=== PATIENT | male | born 1980 | race Caucasian/White ===

== ENCOUNTER 2016-09-23 08:29 | Emergency (ER) | payer OTHER ==
[2016-09-23 08:54] VITALS: BP 141/89
--- NOTE | 2016-09-23 10:17 | UC ---
Back Pain HPI - HPI Summary HPI Summary: SLIPPED AND FELL JUNE 2016 AND SINCE THEN HAS HAD INTERMITTENT MID/LOWER BACK PAIN WORSE ON THE RIGHT SIDE. NO NUMBNESS OR TINGLING OR SADDLE ANESTHESIA. 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 IT IS KEEPING HIM UP AT NIGHT. - History of Current Complaint Chief Complaint: UCBackPain Stated Complaint: BACK PAIN Time Seen by Provider: 09/23/16 10:09 Hx Obtained From: Patient Onset/Duration: Gradual Onset, Lasting Weeks, Still Present Timing: Intermittent Severity Initially: Moderate Severity Currently: Moderate Pain Intensity: 6 Pain Scale Used: 0-10 Numeric Character: Dull, Throbbing Aggravating: Movement Alleviating: Rest Associated Signs And Symptoms: Negative: Swelling, Redness, Bruising, Fever, Weakness, Numbness, Tingling, Abdominal Pain, Bladder Incontinence, Bowel Incontinence - Allergies/Home Medications Allergies/Adverse Reactions: Allergies Allergy/AdvReac Type Severity Reaction Status Date / Time Ibuprofen Allergy Bleeding Verified 09/23/16 08:47 Home Medications: Home Medications Naltrexone (NF) 1 tab PO DAILY 09/23/16 [History Confirmed 09/23/16] hydrOXYzine HCL TAB* [Atarax TAB*] 10 mg PO PRN 09/23/16 [History] PMH/Surg Hx/FS Hx/Imm Hx - Additional Past Medical History Additional PMH: MILD SCOLIOSIS Endocrine History Of: Denies: Diabetes, Thyroid Disease Cardiovascular History Of: Denies: Cardiac Disorders, Hypertension, Pacemaker/ICD Respiratory History Of: Reports: Bronchitis - CHRONIC A TEENAGER Denies: COPD, Asthma GI/ History Of: Denies: Ulcer Neurological History Of: Reports: Seizures - 03/2015 AT [facility] - FROM ALCOHOL WITHDRAWAL, NONE SINCE Psychological History Of: Reports: Anxiety - NO MEDS, Depression, Bipolar Disorder - Surgical History Surgical History: Yes Surgery Procedure, Year, and Place: 2010 RIGHT INGUINAL HERNIA REPAIR, [facility]. 1997 TONSILLECTOMY, [facility] [place]. 11/2015 ERCP WITH GALLSTONE REMOVAL, [facility] [place] - Family History Known Family History: Positive: None - Social History Alcohol Use: Weekly Alcohol Amount: RECOVERING MARIJUANA Substance Use Type: None Substance Use Comment - Amount & Last Used: RECOVERING MARIJUANA Smoking Status (MU): Former Smoker Type: Cigarettes Amount Used/How Often: LESS THAN A PACK A WEEK - ON AND OFF FOR ABOUT 20 YEARS Length of Time of Smoking/Using Tobacco: ON AND OFF FOR ABOUT 20 YEARS Have You Smoked in the Last Year: Yes When Did the Patient Quit Smoking/Using Tobacco: September 2015 - Immunization History Most Recent Influenza Vaccination: pt is unsure Most Recent Tetanus Shot: UNSURE Most Recent Pneumonia Vaccination: NEVER Review of Systems Constitutional: Negative Skin: Negative Respiratory: Negative Cardiovascular: Negative Gastrointestinal: Negative Musculoskeletal: Decreased ROM, Myalgia Neurological: Negative All Other Systems Reviewed And Are Negative: Yes Physical Exam Triage Information Reviewed: Yes Appearance: Well-Appearing, No Pain Distress, Well-Nourished Vital Signs: Initial Vital Signs Temp 98.4 F 09/23/16 08:49 Pulse 87 09/23/16 08:49 Resp 18 09/23/16 08:49 BP 141/89 09/23/16 08:49 Pulse Ox 96 09/23/16 08:49 Vital Signs Reviewed: Yes Eyes: Positive: Conjunctiva Clear ENT: Positive: Hearing grossly normal Neck: Positive: Supple Respiratory: Positive: No respiratory distress, No accessory muscle use Cardiovascular: Positive: Pulses Normal Abdomen Description: Positive: Soft Musculoskeletal: Positive: No Edema, ROM Limited @ - BACK, Other: - MILDLT TENDER OVER PARASPINOUS MUSCLES RIGHT SIDE Neurological: Positive: Alert Psychological: Positive: Age Appropriate Behavior Skin: Negative: rashes Diagnostics - Radiology THORACOLUMBAR XRAY Xray Interpretation: No Acute Changes Radiology Interpretation Completed By: Radiologist Back Pain Course/Dx - Differential Dx/Diagnosis Provider Diagnoses: ACUTE ON CHRONIC MID/LOW BACK STRAIN Discharge - Discharge Plan Condition: Stable Disposition: HOME Prescriptions: Cyclobenzaprine TAB* [Flexeril TAB*] 10 mg PO BID PRN #30 tab PRN Reason: Pain Diclofenac 1% GEL (NF) [Voltaren 1% GEL (NF)] 1 applic TOPICAL QID PRN #1 tube PRN Reason: Pain Naproxen [Naproxen EC] 500 mg PO BID PRN #30 tab PRN Reason: Pain Patient Education Materials: Low Back Strain (ED), Chronic Back Pain (ED) Forms: *Work Release Additional Instructions: XRAY OF THORACOLUMBAR SPINE UNREMARKABLE. LIKELY MUSCULOSKELETAL STRAIN. IF PAIN IS PERSISTENT CONSIDER MRI FOR FURTHER EVALUATION. CALL THE NUMBER BELOW FOR ASSISTANCE IN ESTABLISHING WITH A PCP An additional resource available to assist in finding the appropriate physician for your health care needs is the [facility] ([facility]). You may contact them by calling [phone]. [facility] [address] [place] [address]
--- NOTE | 2016-09-23 10:49 | RAD ---
INDICATION: Trauma, back pain. COMPARISON: There are no prior studies available for comparison. TECHNIQUE: AP and lateral films of the spine were obtained centered just below the dorsal lumbar junction. The T10-L5 vertebra are visualized. FINDINGS: The vertebra are in normal alignment. No fracture is seen. Disc spaces appear maintained. IMPRESSION: NO EVIDENCE FOR FRACTURE.
== END 2016-09-23 11:08 | disposition home or self-care (01) ==
LOC: UCEAST 08:29
DX: S39.012A Strain of muscle, fascia and tendon of lower back, initial encounter (principal); W18.30XA Fall on same level, unspecified, initial encounter; R56.9 Unspecified convulsions; F41.9 Anxiety disorder, unspecified; R03.0 Elevated blood-pressure reading, without diagnosis of hypertension; Z87.891 Personal history of nicotine dependence
CPT/HCPCS: 72080; 99212; G0463

== ENCOUNTER 2016-09-28 10:23 | Emergency (ER) | payer OTHER ==
[2016-09-28 10:35] VITALS: BP 173/97
--- NOTE | 2016-09-28 11:24 | UC ---
Back Pain HPI - HPI Summary HPI Summary: seen on 09/23/16 FOR FALL THAT HAPPENED IN JUNE OF 2016. 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 - History of Current Complaint Chief Complaint: UCBackPain Stated Complaint: BACK INJURY Time Seen by Provider: 09/28/16 10:29 Onset/Duration: Sudden Onset, Lasting Days, Still Present Timing: Intermittent Severity Initially: Moderate Severity Currently: Moderate Pain Intensity: 7 Pain Scale Used: 0-10 Numeric Character: Spasmodic, Stiffness Aggravating: Movement, Bending Alleviating: Rest, Position - Risk Factors AAA Risk Factors: Negative TAD Risk Factors: Negative Cauda Equina Risk Factors: Negative Epidural Abscess Risk Factors: Negative - Allergies/Home Medications Allergies/Adverse Reactions: Allergies Allergy/AdvReac Type Severity Reaction Status Date / Time Ibuprofen Allergy Bleeding Verified 09/23/16 08:47 PMH/Surg Hx/FS Hx/Imm Hx Previously Healthy: Yes Endocrine History Of: Denies: Diabetes, Thyroid Disease Cardiovascular History Of: Denies: Cardiac Disorders, Hypertension, Pacemaker/ICD Respiratory History Of: Reports: Bronchitis - CHRONIC A TEENAGER Denies: COPD, Asthma GI/ History Of: Denies: Ulcer Neurological History Of: Reports: Seizures - 03/2015 AT [facility] [place] [facility] - FROM ALCOHOL WITHDRAWAL, NONE SINCE Psychological History Of: Reports: Anxiety - NO MEDS, Depression, Bipolar Disorder - Surgical History Surgical History: Yes Surgery Procedure, Year, and Place: 2010 RIGHT INGUINAL HERNIA REPAIR, [facility]. 1998 TONSILLECTOMY, [facility] [place]. 11/2015 ERCP WITH GALLSTONE REMOVAL, [facility] [place], [facility] - Family History Known Family History: Positive: None Negative: Renal Disease - Social History Occupation: Employed Full-time Lives: With Family Alcohol Use: Weekly Alcohol Amount: RECOVERING MARIJUANA Substance Use Type: None Substance Use Comment - Amount & Last Used: RECOVERING MARIJUANA Smoking Status (MU): Former Smoker Type: Cigarettes Amount Used/How Often: LESS THAN A PACK A WEEK - ON AND OFF FOR ABOUT 20 YEARS Length of Time of Smoking/Using Tobacco: ON AND OFF FOR ABOUT 20 YEARS Have You Smoked in the Last Year: Yes When Did the Patient Quit Smoking/Using Tobacco: September 2015 Cessation Counseling: Patient Advised to Stop - Immunization History Most Recent Influenza Vaccination: pt is unsure Most Recent Tetanus Shot: UNSURE Most Recent Pneumonia Vaccination: NEVER Review of Systems Constitutional: Negative Skin: Negative Eyes: Negative ENT: Negative Respiratory: Negative Cardiovascular: Negative Gastrointestinal: Negative Genitourinary: Negative Motor: Negative Neurovascular: Negative Musculoskeletal: Arthralgia, Myalgia Neurological: Negative Psychological: Negative All Other Systems Reviewed And Are Negative: Yes Physical Exam Triage Information Reviewed: Yes Appearance: Well-Appearing, No Pain Distress, Well-Nourished Vital Signs: Initial Vital Signs Temp 98.9 F 09/28/16 10:31 Pulse 65 09/28/16 10:31 Resp 16 09/28/16 10:31 BP 173/97 09/28/16 10:31 Pulse Ox 100 09/28/16 10:31 Vital Signs Reviewed: Yes Eye Exam: Normal ENT Exam: Normal ENT: Positive: Normal ENT inspection, Hearing grossly normal, TMs normal Dental Exam: Normal Neck exam: Normal Neck: Positive: Supple, Nontender, No Lymphadenopathy Respiratory Exam: Normal Respiratory: Positive: Chest non-tender, Lungs clear, Normal breath sounds, No respiratory distress, No accessory muscle use Cardiovascular Exam: Normal Cardiovascular: Positive: RRR, No Murmur, Pulses Normal Abdominal Exam: Normal Abdomen Description: Positive: Nontender, No Organomegaly Musculoskeletal: Positive: Strength Intact, ROM Intact, No Edema, Other: - PALPABLE MUSCLE SPASM ON LEFT SIDE OF BACK Neurological Exam: Normal Psychological Exam: Normal Psychological: Positive: Normal Response To Family Skin Exam: Normal Back Pain Course/Dx - Differential Dx/Diagnosis Differential Diagnosis/HQI/PQRI: Strain, Sprain Provider Diagnoses: ACUTE ON CHRONIC RIGHT SIDED BACK PAIN. MUSCLE SPASM Discharge - Discharge Plan Condition: Stable Disposition: HOME Forms: *Work Release Referrals: [facility] PHYSICIAN REFERRAL [Outside] Non Staff,Doctor [Primary Care Provider] -
== END 2016-09-28 11:13 | disposition home or self-care (01) ==
LOC: UCEAST 10:23
DX: M62.830 Muscle spasm of back (principal); G89.29 Other chronic pain; R03.0 Elevated blood-pressure reading, without diagnosis of hypertension; Z88.6 Allergy status to analgesic agent
CPT/HCPCS: 99211; G0463

== ENCOUNTER 2016-10-14 10:49 | Inpatient (IN) | payer OTHER ==
[2016-10-14 11:25] LABS: Urine Bilirubin Negative (Negative); Urine Glucose Negative (Negative); Urine Nitrite Negative (Negative)
[2016-10-14 11:46] LABS: Benzodiazepine Urine Screen None Detected (None Detect)
--- NOTE | 2016-10-14 11:48 | RAD ---
HISTORY: Right hand pain COMPARISONS: None VIEWS: 2, Frontal and lateral views of the right hand FINDINGS: BONE DENSITY: Normal. BONES: There is a linear lucency consistent with a nondisplaced fracture of the base of the fifth metacarpal. There is remote post traumatic deformity of the distal fifth metacarpal JOINTS: There is no arthropathy. ALIGNMENT: There is no dislocation. SOFT TISSUES: Unremarkable. OTHER FINDINGS: None. IMPRESSION: NONDISPLACED FRACTURE OF THE BASE OF THE FIFTH METACARPAL
[2016-10-14 12:15] LABS: Hematocrit 43 % (42-52); Hemoglobin 14.3 g/dl (14.0-18.0); Mean Corpuscular HGB Conc 33 g/dl (31-36); Mean Corpuscular Hemoglobin 29 pg (27-31); Mean Corpuscular Volume 88 fL (80-94); Mean Platelet Volume 7 um3 (7.4-10.4); Red Blood Count 4.87 10^6/ul (4.0-5.4); Red Cell Distribution Width 14 % (10.5-15); White Blood Count 9.5 10^3/ul (3.5-10.8)
--- NOTE | 2016-10-14 12:20 | ED ---
Progress - Progress Note Progress Note: Rt hand base of 5th MT fx Ulnar-gutter splint placed (fiberglass hand-made) - pt tolerated well NV intact pre and post placement Course/Dx - Diagnoses Provider Diagnoses: Fracture of fifth metacarpal bone of right hand
[2016-10-14 12:27] LABS: ALT 34 U/L (7-52); AST 35 U/L (13-39); Albumin 4.7 g/dL (3.2-5.2); Alkaline Phosphatase 72 U/L (34-104); Anion Gap 12 mmol/L (2-11); BUN/Creatinine Ratio 10.2 (8-20); Blood Urea Nitrogen 9 mg/dL (6-24); CO2 Carbon Dioxide 23 mmol/L (22-32); Calcium 9.5 mg/dL (8.6-10.3); Chloride 104 mmol/L (101-111); EGFR African American 126.7 (>60); EGFR Non-African American 98.6 (>60); Globulin 3.2 g/dL (2-4); Glucose 93 mg/dL (70-100); Potassium 3.4 mmol/L (3.5-5.0); Sodium 139 mmol/L (133-145); Total Protein 7.9 g/dL (6.4-8.9)
[2016-10-14 12:28] LABS: Acetaminophen < 15 mcg/mL; Alcohol 95 mg/dL (<10); Salicylate < 2.50 mg/dL (<30)
[2016-10-14 12:37] LABS: TSH (Thyroid Stimulating Horm) 0.71 mcIU/mL (0.34-5.60)
[2016-10-14] MEDS ORDERED: Al Hydrox/Mg Hydrox/Simet LIQ* 30 ML UDC PO PRN (14:57)
[2016-10-14] MEDS: Acetaminophen TAB* 325 MG PO PRN (16:11)
--- NOTE | 2016-10-14 16:23 | ED ---
Chad Marin Billy, scribed for Mark Daniel MD on 10/14/16 at 1202 . Psychiatric Complaint - HPI Summary HPI Summary: Patient is a 36 year-old male coming to [facility] for voluntary mental health evaluation. He states he has had suicidal "thoughts and impulses" for the last 3 weeks, and did not feel safe by himself. He spoke to his and therapist about this, and he decided to come to the ED for treatment. He reports previous suicidal attempts. Patient has a history of anxiety, depression, and alcoholism. He states he had consumed EtOH last night, but the last time he drank before then was 3-4 weeks ago. He also states that he used cocaine last night. He has right hand pain after punching a wall last night. - History Of Current Complaint Chief Complaint: EDMentalHealth Time Seen by Provider: 10/14/16 11:07 Hx Obtained From: Patient Onset/Duration: Gradual Onset, Lasting Weeks, Still Present Timing: Constant Severity Initially: Moderate Severity Currently: Moderate Character: Depressed Aggravating Factor(s): Alcohol Use, Drug Use Alleviating Factor(s): Nothing Related History: Positive For: Prior Psychiatric Issues Has Suicidal: Reports: Thoughts. Denies: With A Plan Has Homicidal: Denies: Thoughts, With A Plan - Allergies/Home Medications Allergies/Adverse Reactions: Allergies Allergy/AdvReac Type Severity Reaction Status Date / Time Ibuprofen Allergy Bleeding Verified 10/13/16 13:34 Home Medications: Home Medications Hydroxyzine Pamoate [Vistaril] 25 mg PO Q4HR PRN 10/14/16 [History Confirmed 05/23] Naltrexone (NF) 50 mg PO DAILY 10/14/16 [History Confirmed 10/14/16] PMH/Surg Hx/FS Hx/Imm Hx Endocrine/Hematology History: Denies: Hx Diabetes, Hx Thyroid Disease Cardiovascular History: Denies: Hx Hypertension, Hx Pacemaker/ICD Respiratory History: Reports: Hx Sleep Apnea - MILD, UNDIAGNOSISED Denies: Hx Asthma, Hx Chronic Obstructive Pulmonary Disease (COPD) GI History: Reports: Hx Gastroesophageal Reflux Disease - NO MEDS FOR ACID REFLUX, Other GI Disorders - h/o intermittant nausea/none now Denies: Hx Ulcer Sensory History: Denies: Hx Contacts or Glasses, Hx Hearing Aid Opthamlomology History: Denies: Hx Contacts or Glasses Neurological History: Reports: Hx Seizures - 03/2015 AT [facility] - FROM ALCOHOL WITHDRAWAL, NONE SINCE Psychiatric History: Reports: Hx Anxiety - NO MEDS, Hx Depression, Hx Bipolar Disorder, Hx Suicide Attempt - 05/20/13 considered suicide, Hx Substance Abuse - ETOH & COCAINE Denies: Hx Eating Disorder, Hx Panic Disorder, Hx of Violent Episodes Against Others - Surgical History Surgery Procedure, Year, and Place: 2010 RIGHT INGUINAL HERNIA REPAIR, [facility]. 1998 TONSILLECTOMY, [facility] [place]. 11/2015 ERCP WITH GALLSTONE REMOVAL, [facility] [place] [place] Hx Anesthesia Reactions: No Infectious Disease History: No Infectious Disease History: Denies: Hx Hepatitis, Hx Human Immunodeficiency Virus (HIV), History Other Infectious Disease, Traveled Outside the [place] in Last 30 Days - Family History Known Family History: Negative: Renal Disease - Social History Alcohol Use: Weekly Alcohol Amount: RECOVERING MARIJUANA Substance Use Type: Reports: None Substance Use Comment - Amount & Last Used: RECOVERING MARIJUANA Hx Tobacco Use: Yes Smoking Status (MU): Former Smoker Type: Cigarettes Amount Used/How Often: LESS THAN A PACK A WEEK - ON AND OFF FOR ABOUT 20 YEARS Length of Time of Smoking/Using Tobacco: ON AND OFF FOR ABOUT 20 YEARS Have You Smoked in the Last Year: Yes Review of Systems Negative: Fever Positive: Arthralgia - right hand Positive: Depressed - SI All Other Systems Reviewed And Are Negative: Yes Physical Exam - Summary Physical Exam Summary: The patient is well-nourished in no acute distress and in no acute pain. The skin is warm and dry and skin color reflects adequate perfusion. HEENT: The head is normocephalic and atraumatic. The pupils are equal and reactive. The conjunctivae are clear and without drainage. Nares are patent and without drainage. Mouth reveals moist mucous membranes and the throat is without erythema and exudate. The external ears are intact. The ear canals are patent and without drainage. The tympanic membranes are intact. Neck is supple with full range of motion and non-tender. There are no carotid bruits. There is no neck vein distension. Respiratory: Chest is non-tender. Lungs are clear to auscultation and breath sounds are symmetrical and equal. Cardiovascular: Heart is regular rate and rhythm. There is no murmur or rub auscultated. There is no peripheral edema and pulses are symmetrical and equal. Abdomen: The abdomen is soft and non-tender. There are normal bowel sounds heard in all four quadrants and there is no organomegaly palpated. Musculoskeletal: There is no back pain noted. Extremities are non-tender with full range of motion. There is good capillary refill. There is no peripheral edema or calf tenderness elicited. Neurological: Patient is alert and oriented to person, place and time. The patient has symmetrical motor strength in all four extremities. Cranial nerves are grossly intact. Deep tendon reflexes are symmetrical and equal in all four extremities. Psychiatric: The patient is depressed and has suicidal ideation without any known plans. Triage Information Reviewed: Yes Vital Signs On Initial Exam: Initial Vitals Temp Pulse Resp BP Pulse Ox 98.6 F 97 18 171/100 99 10/14/16 11:38 10/14/16 11:38 10/14/16 11:38 10/14/16 11:38 10/14/16 11:38 Vital Signs Reviewed: Yes Diagnostics - Vital Signs Vital Signs Temp Pulse Resp BP Pulse Ox 10/14/16 11:38 98.6 F 97 18 171/100 99 - Laboratory Lab Results: Lab Results 10/14/16 10/14/16 Range/Units 11:09 11:09 Urine Color Colorless Urine Appearance Clear Urine pH 6.0 (5-9) Ur Specific Prue 1.002 L (1.010-1.030) Urine Protein Negative (Negative) Urine Ketones Negative (Negative) Urine Blood Negative (Negative) Urine Nitrate Negative (Negative) Urine Bilirubin Negative (Negative) Urine Urobilinogen Negative (Negative) Ur Leukocyte Esterase Negative (Negative) Urine Glucose Negative (Negative) Urine Opiates Screen None detected (None Detect) Ur Barbiturates Screen None detected (None Detect) Ur Phencyclidine Scrn None detected (None Detect) Ur Amphetamines Screen None detected (None Detect) U Benzodiazepines Scrn None detected (None Detect) Urine Cocaine Screen Presumptive positive H (None Detect) U Cannabinoids Screen None detected (None Detect) Result Diagrams: 10/14/16 11:55 10/14/16 11:55 Lab Statement: Any lab studies that have been ordered have been reviewed, and results considered in the medical decision making process. - Radiology Right Hand XRay Radiology Interpretation Completed By: Radiologist - NONDISPLACED FRACTURE OF THE BASE OF THE FIFTH METACARPAL Course/Dx - Course Course Of Treatment: Medically clear for MHE at 1234. Assessment/Plan: All blood work WNL. X ray of the right hand has a nondisplaced fraxture. Splint was placed by Dayana JUAREZ. Re-exam after splint: neurovascular intact. He is medically cleared. He is awaiting for a MHE. Patient is hemodynamically stable and A+O x 3. Patient was asest by Dr. Guzman (Psychiatry) he accept the patient for admission fir further management. - Differential Dx/Clinical Impression Differential Diagnosis/HQI/PQRI: Positive: Depression, Suicidal Ideation, Suicidal Gesture Provider Diagnosis: Fracture of fifth metacarpal bone of right hand, Depression Discharge - Discharge Plan Condition: Stable Disposition: PSYCHIATRIC FACILITY-[facility] The documentation as recorded by the Chad ferro Billy accurately reflects the service I personally performed and the decisions made by me, Mark Daniel MD.
[2016-10-14] MEDS ORDERED: Naproxen TAB* 250 MG ONE (17:36)
[2016-10-15] MEDS: Naproxen TAB* 250 MG PO PRN (08:27)
[2016-10-15] MEDS: Naltrexone (NF) 50 MG TAB PO SCH (08:28)
[2016-10-15] MEDS: Thiamine TAB* 100 MG TAB PO SCH (08:28)
[2016-10-15] MEDS: Vitamin THERAPEUTIC TAB PO SCH (08:28)
[2016-10-15] MEDS: hydrOXYzine HCL TAB* 25 MG PO PRN (08:29)
[2016-10-15] MEDS: Sertraline* 25 MG TAB PO SCH (12:31)
--- NOTE | 2016-10-15 20:02 | HP ---
HISTORY AND PHYSICAL: DATE OF ADMISSION: IDENTIFYING DATA: Douglas is a 36-year-old , employed, male, this is his second psychiatric hospitalization at [facility] and one of multiple prior psychiatric hospitalizations in the past in different other hospitals. CHIEF COMPLAINT: "I have been suffering from serious depression and spiraling down for long time and I feel so guilty." HISTORY OF PRESENT ILLNESS: Douglas came to the emergency room on a voluntary basis , brought in by the ambulance from [facility] where he reported to his therapist that he was feeling suicidal with definitive plans to kill himself. During today's evaluation, Douglas reports that his depressive symptoms have been gradually worsening for more than 2 months now. He then started drinking briefly believing that, that will resolve the feelings of depression; however, it did not. He stopped drinking briefly and tried to get over with it, but for the last couple of days, he started drinking again and drank about 12-pack every day and then his depression worsened to a point that he started being seriously suicidal. He reports of feeling sad, crying for no reason, feeling helpless, worthless, and guilty. He could not find the reason for what he was feeling guilty, although he has everything to be happy about like he has a very supportive and loving caring . They just had a baby girl 4-1/2 months ago. He is making good money from his work, yet he cannot make himself happy enough. 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 He called his primary care physician, who sent him to [facility] for further evaluation from where he was sent to [facility] Emergency Department. Today, he denies any thoughts of hurting himself, also denies any hallucinations, delusions, or obsessions. He says he feels safe while in the hospital. PAST PSYCHIATRIC HISTORY: As mentioned earlier, multiple prior psychiatric hospitalizations beginning in May of 2013 at [facility]. He was transferred to the psychiatric unit from Medicine after management of severe alcohol withdrawal. Prior to that, he was hospitalized at [facility] in 2009 for depression and suicidal ideations. His history is remarkable for multiple suicide attempts, I believe, jumping from a bridge and fracturing his ankle. Also, overdose on lots of Benadryl resulting in hospitalization in the medical floor. Finally, he was hospitalized here at [facility] at age 29 following a Benadryl overdose and this time out of anger and frustration, he punched the wall and fractured his hand. PAST TRIAL OF MEDICATIONS: Includes: 1. Citalopram. 2. Lamotrigine. 3. Quetiapine. 4. Gabapentin. 5. Antabuse. 6. Depakote of which he did not like any of them. PAST MEDICAL HISTORY: History of right inguinal hernia repair; two head injuries, one with loss of consciousness at age 26, other TBI at age 34; history of seizures, possibly because of alcohol use and withdrawal. Labs: Unremarkable. SUBSTANCE ABUSE HISTORY: Significant for mostly alcohol use disorder. He started drinking at age 14 and by age 20, it became heavy drinking and daily drinking of 40 beers per day. He reported of going through DTs, seizures, etc. He also experimented with cocaine and marijuana; however, denies using any other psychoactive drugs. ALLERGIES: No known drug allergies. FAMILY HISTORY: Significant for his father having depression and alcohol use disorder. Sister suffers from schizophrenia and alcohol use disorder. No family history of completed suicide. SOCIAL AND PERSONAL HISTORY: Douglas was born and raised in [place], [place]. His parents when he was 10 years old. He had 5 older siblings. He managed to graduate from high school and went to [employer] school for 2 years in [employer]. 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 In the past, he also worked in [employer]. He is and has a 4-1/2- month-old baby girl. PHYSICAL EXAMINATION GENERAL APPEARANCE: He does not appear to be in any kind of physical distress. He is a healthy appearing, somewhat disheveled, male with fair grooming and hygiene. VITAL SIGNS: Show blood pressure of 158/100, pulse 82, respirations 16, O2 sat 99, temperature 98.3, complaining of 5/10 hand pain and 3/10 back pain. HEENT: MMM. EOMI. Oral cavity: Fairly clean, no abnormal findings in the oral cavity, dentures, or pharynx. NECK: Supple. No JVD. No enlarged lymph nodes. LUNGS: Bilateral air entry, equal on both sides, equal without any added sounds. CARDIOVASCULAR: Heart rate regular and rhythm is normal. S1, S2 only. No murmur or gallops. ABDOMEN: Soft, no tenderness, no organomegaly. Bowel sounds positive in all 4 quadrants. GENITOURINARY: Deferred per the patient's request. RECTAL: No rectal exam done per the patient's request. EXTREMITIES: Both extremities have full range of movements except for right wrist, which is tender because of fractured hand. No edema or swelling of the legs. Pedal pulse positive. NEUROLOGIC: Cranial nerves II through XII grossly intact. No focal deficits. He is alert and oriented to time, place, and person. SKIN: Intact, no rashes or lesions. Right hand is wrapped in a crepe bandage. MENTAL STATUS EXAMINATION: Average height, average weight, healthy-appearing, male, who is alert and oriented to time, place and person. Makes good eye contact. Speech is normal in all spheres. Describes his mood as depressed, observed affect appears to be restricted and dysphoric. Intelligence appears to be average as evidenced by his vocabulary and fund of knowledge. Memory functions are intact in all spheres. There is no evidence of any thoughts, perceptual, or psychomotor disturbances at the time of evaluation. Insight and judgment appears to be fair to good. CLINICAL SUMMARY: This 36-year-old employed, , male with history of alcohol use disorder and some mood disorder which is untreated presented to the emergency department following 2 months of worsening depressive symptoms and resuming drinking again. He is currently suicidal with plans either to overdose or slash his wrist. MENTAL HEALTH DIAGNOSES: 1. Mood disorder, not otherwise specified, rule out major depressive disorder. 2. Alcohol use disorder. PHYSICAL HEALTH DIAGNOSIS: None at this time. TREATMENT PLAN: Douglas will remain hospitalized on the behavioral health unit for his safety. 15-minute check will continue. His code status will remain full. Supportive milieu, individual, and group therapy will be initiated and he will be encouraged to attend. Different treatment modalities were discussed with him , specifically psychopharmacological. He agreed to consider Zoloft. Risks, benefits, and alternatives to Zoloft were explained. He verbalized his understanding and wants to try. Rest of the pharmacological management will be up to the assigned psychiatrist on the unit. [id number]/[facility] #: [id number] [facility]
[2016-10-16] MEDS: Naltrexone (NF) 50 MG TAB PO SCH (08:54)
[2016-10-16] MEDS: Vitamin THERAPEUTIC TAB PO SCH (08:54)
[2016-10-16] MEDS: Naproxen TAB* 250 MG PO PRN ×2 (08:54→21:36)
[2016-10-16] MEDS: Thiamine TAB* 100 MG TAB PO SCH (08:54)
[2016-10-16] MEDS: Sertraline* 25 MG TAB PO SCH (08:54)
[2016-10-16] MEDS: hydrOXYzine HCL TAB* 25 MG PO PRN (20:17)
--- NOTE | 2016-10-16 20:41 | ADMNOTE ---
Identification - Identify Employment Status: Employed Hx Psychiatric Hospitalization: Yes - Last admission on04/08/15 on [facility] Arrived to Hospital Via: Ambulatory History - Objective HPI: 36 y/o male known to this unit fron onother admission in 2014 present seeking admission due to suicidal ideation and multiple plans suchas OD and self mutilation. Relapsed on alcohol and cocaine 2 months ago and wasn't complient with his meds. Exam Appearance: Healthy Appearing Hygiene: Normal Grooming: Well Kept Psychomotor Activities: Normal Exhibits Abnormal Movement: No Attitude and Relatedness: Appropriate Eye Contact: Good - Speech Quality: Unpressured Latencies: Normal Quantity: Appropriate Patient's Decription of Mood: "Sad" Observed Affect: Non-labile Patient's Thought Process: Coherent, Goal Directed Thought Content: Yes Passive Wish, Yes Suicidal Planning - OD and self mutilation, No Homicidal Ideation, No Paranoid Ideation Experiencing Hallucinations: No, Sensorium is Clear Type of Hallucinations: Visual: No, Auditory: No, Command: No Orientation: Yes Intact, Yes Orientated to Time, Yes Orientated to Place, Yes Orientated to Person Impulse Control: Tenuous Insight and Judgement: Good Impression - Impression Merits Inpatient Hospitalization: Yes - [place] [facility] Mental Illness: Substance induced Mood d/o. Substance use d/o - [place] [facility] Medical Illness: None Plan - Treatment Plan Continued Medication Management: Start Medication Medications: Current Medications Acetaminophen (Tylenol Tab*) 650 mg PO Q4H PRN PRN Reason: for pain; or Temp >101 F Last Admin: 10/14/16 16:11 Dose: 650 mg Al Hydrox/Mg Hydrox/Simethicone (Maalox Plus*) 30 ml PO Q4H PRN PRN Reason: INDIGESTION Hydroxyzine HCl (Atarax Tab*) 25 mg PO Q4H PRN PRN Reason: AGITATION/ANXIETY/INSOMNIA Last Admin: 10/16/16 20:17 Dose: 25 mg Multivitamins (Theragran Tab*) 1 tab PO DAILY [facility] Last Admin: 10/16/16 08:54 Dose: 1 tab Naltrexone HCl (Naltrexone (Nf)) 50 mg PO DAILY [facility] PRN Reason: Protocol Last Admin: 10/16/16 08:54 Dose: 50 mg Naproxen (Naprosyn Tab*) 500 mg PO BID PRN PRN Reason: PAIN Last Admin: 10/16/16 08:54 Dose: 500 mg Sertraline HCl (Zoloft*) 25 mg PO DAILY [facility] Last Admin: 10/16/16 08:54 Dose: 25 mg Thiamine HCl (Vitamin B-1 Tab*) 100 mg PO DAILY [facility] Last Admin: 10/16/16 08:54 Dose: 100 mg - Discharge Plan Discharge Plan: Drug/Alcohol Rehab Outpatient Program: [facility]
[2016-10-17] MEDS: Naproxen TAB* 250 MG PO PRN ×2 (08:17→20:17)
[2016-10-17] MEDS: Sertraline* 25 MG TAB PO SCH (08:18)
[2016-10-17] MEDS: Thiamine TAB* 100 MG TAB PO SCH (08:18)
[2016-10-17] MEDS: Vitamin THERAPEUTIC TAB PO SCH (08:18)
[2016-10-17] MEDS: hydrOXYzine HCL TAB* 25 MG PO PRN ×2 (08:18→20:18)
[2016-10-17] MEDS: Naltrexone (NF) 50 MG TAB PO SCH (08:18)
--- NOTE | 2016-10-17 12:16 | PN ---
Subjective - Subjective Service Type: 97653 Hosp care 15 min low complexity Subjective: The patient is met for the first time today and his chart is reviewed. He endorses a long history of episodic mood instability with current depressive functioning. His last period of amber was approximately 1.5 years ago. He has been isolative thus far this hospitalization but feels like he should start attending groups. The patient speaks fondly of his and 4.5 month old daughter and states he is not having SI here in the hospital. He has had negative reactions to quetiapine and Depakote in the past. Objective - Appearance Appearance: Well Developed/Nourished Dysmorphic Features: No Hygiene: Normal Grooming: Fairly Well Kept - Behavior Psychomotor Activities: Normal Exhibits Abnormal Movement: No - Attitude and Relatedness Attitude and Relatedness: Cooperative Eye Contact: Fair - Speech Quality: Unpressured Latencies: Normal Quantity: Appropriate - Mood Patient's Decription of Mood: "Sad" - Affect Observed Affect: Depressed Affect Consistent with: Dysphoria - Thought Process Patient's Thought Process: Coherent Thought Content: No Passive Wish, No Suicidal Planning, No Homicidal Ideation, No Paranoid Ideation - Sensorium Experiencing Hallucinations: No, Sensorium is Clear Type of Hallucinations: Visual: No, Auditory: No, Command: No - Level of Consciousness Level of Consciousness: Alert Orientation: Yes Intact, Yes Orientated to Time, Yes Orientated to Place, Yes Orientated to Person - Impulse Control Impulse Control: Tenuous - Insight and Judgement Insight and Judgement: Fair - Group Participation Particating in Group Activities: No - Medication Management Medication Management Adherence: Yes Assessment - Assessment Merits Inpatient Hospitalization: For Immediate Safety, For Stabilization Inpatient DSM-IV Dx: Bipolar Depression Clinical Impression: 36 y.o. , white male with a history of bipolar DO, alcohol and cocaine abuse arriving voluntarily to the ER complaining of depressed mood and SI with thoughts to cut himself with a knife. Plan - Plan Treatment Plan: Name: MARCO ANTONIO VASQUES Birthdate: 1980 [id number] The patient has bipolar depression. We will discontinue sertraline and start trials of lamotrigine 25mg PO qday, aripiprazole 5mg PO qday and Benadryl at night, as needed, for sleep. Will encourage group participation. Continued Medication Management: Start Medication Medications: Current Medications Acetaminophen (Tylenol Tab*) 650 mg PO Q4H PRN PRN Reason: for pain; or Temp >101 F Last Admin: 10/14/16 16:11 Dose: 650 mg Al Hydrox/Mg Hydrox/Simethicone (Maalox Plus*) 30 ml PO Q4H PRN PRN Reason: INDIGESTION Hydroxyzine HCl (Atarax Tab*) 25 mg PO Q4H PRN PRN Reason: AGITATION/ANXIETY/INSOMNIA Last Admin: 10/17/16 08:18 Dose: 25 mg Multivitamins (Theragran Tab*) 1 tab PO DAILY [facility] Last Admin: 10/17/16 08:18 Dose: 1 tab Naltrexone HCl (Naltrexone (Nf)) 50 mg PO DAILY [facility] PRN Reason: Protocol Last Admin: 10/17/16 08:18 Dose: 50 mg Naproxen (Naprosyn Tab*) 500 mg PO BID PRN PRN Reason: PAIN Last Admin: 10/17/16 08:17 Dose: 500 mg Sertraline HCl (Zoloft*) 25 mg PO DAILY [facility] Last Admin: 10/17/16 08:18 Dose: 25 mg Thiamine HCl (Vitamin B-1 Tab*) 100 mg PO DAILY [facility] Last Admin: 10/17/16 08:18 Dose: 100 mg - Discharge Plan Discharge Plan: Inpatient Hospitalization
[2016-10-17] MEDS: ARIPiprazole TAB* 5 MG PO SCH (13:09)
[2016-10-17] MEDS: lamoTRIgine TAB(*) 25 MG PO SCH (13:10)
[2016-10-17] MEDS: diPHENhydraMINE PO* 50 MG PO PRN (20:16)
[2016-10-18] MEDS: Naltrexone (NF) 50 MG TAB PO SCH (09:04)
[2016-10-18] MEDS: ARIPiprazole TAB* 5 MG PO SCH (09:05)
[2016-10-18] MEDS: Vitamin THERAPEUTIC TAB PO SCH (09:05)
[2016-10-18] MEDS: Thiamine TAB* 100 MG TAB PO SCH (09:05)
[2016-10-18] MEDS: lamoTRIgine TAB(*) 25 MG PO SCH (09:05)
[2016-10-18] MEDS: hydrOXYzine HCL TAB* 25 MG PO PRN ×2 (11:00→20:02)
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
[2016-10-18] MEDS: Naproxen TAB* 250 MG PO PRN (17:59)
[2016-10-18] MEDS: diPHENhydraMINE PO* 50 MG PO PRN (20:02)
[2016-10-19] MEDS: Naltrexone (NF) 50 MG TAB PO SCH (08:05)
[2016-10-19] MEDS: Thiamine TAB* 100 MG TAB PO SCH (08:05)
[2016-10-19] MEDS: lamoTRIgine TAB(*) 25 MG PO SCH (08:05)
[2016-10-19] MEDS: Vitamin THERAPEUTIC TAB PO SCH (08:06)
[2016-10-19] MEDS: Naproxen TAB* 250 MG PO PRN (08:07)
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
[2016-10-19] MEDS: Acetaminophen TAB* 325 MG PO PRN (15:25)
[2016-10-19] MEDS: Ziprasidone * 20 MG CAP (generic Geodon) PO SCH (20:12)
[2016-10-19] MEDS: Analgesic BALM* 114 GM TOPICAL SCH (20:14)
[2016-10-19] MEDS: diPHENhydraMINE PO* 50 MG PO PRN (21:26)
[2016-10-20 08:05] LABS: HDL Cholesterol 42.1 mg/dL
[2016-10-20] MEDS: Naltrexone (NF) 50 MG TAB PO SCH (10:00)
[2016-10-20] MEDS: lamoTRIgine TAB(*) 25 MG PO SCH (10:00)
[2016-10-20] MEDS: Thiamine TAB* 100 MG TAB PO SCH (10:00)
[2016-10-20] MEDS: Vitamin THERAPEUTIC TAB PO SCH (10:00)
[2016-10-20] MEDS: hydrOXYzine HCL TAB* 25 MG PO PRN ×2 (11:00→20:07)
[2016-10-20] MEDS: Naproxen TAB* 250 MG PO PRN (11:00)
--- NOTE | 2016-10-20 13:41 | PN ---
Subjective - Subjective Service Type: 89424 Hosp care 15 min low complexity Subjective: The patient states that he is tolerating the introduction of ziprasidone well and feels his mood has improved today. He denies any thoughts of self harm and states that he is looking forward to returning home to his and infant daughter. Some uncertainty remains about his legal issues and whether his motorcycle police officer will violate him for his recent relapse on alcohol and cocaine. He has left several messages with her but has not heard back. He would likely opt for inpatient drug rehab if it meant avoiding usp time. Objective - Appearance Appearance: Well Developed/Nourished Dysmorphic Features: No Hygiene: Normal Grooming: Well Kept - Behavior Psychomotor Activities: Normal Exhibits Abnormal Movement: No - Attitude and Relatedness Attitude and Relatedness: Cooperative Eye Contact: Good - Speech Quality: Unpressured Latencies: Normal Quantity: Appropriate - Mood Patient's Decription of Mood: "Okay" - Affect Observed Affect: Fair Affect Consistent with: Euthymia - Thought Process Patient's Thought Process: Coherent Thought Content: No Passive Wish, No Suicidal Planning, No Homicidal Ideation, No Paranoid Ideation - Sensorium Experiencing Hallucinations: No, Sensorium is Clear Type of Hallucinations: Visual: Yes, Auditory: Yes, Command: Yes - Level of Consciousness Level of Consciousness: Alert Orientation: Yes Intact, Yes Orientated to Time, Yes Orientated to Place, Yes Orientated to Person - Impulse Control Impulse Control: Intact - Insight and Judgement Insight and Judgement: Good - Group Participation Particating in Group Activities: Yes - Medication Management Medication Management Adherence: Yes Assessment - Assessment Merits Inpatient Hospitalization: Consolidate Improvements, Pending Safe DC Plan Inpatient DSM-IV Dx: Bipolar Depression Clinical Impression: 36 y.o. , white male with a history of bipolar DO, alcohol and cocaine abuse arriving voluntarily to the ER complaining of depressed mood and SI with thoughts to cut himself with a knife. Plan - Plan Treatment Plan: Name: MARCO ANTONIO VASQUES Birthdate: 1980 [id number] The patient is receiving lamotrigine 50mg PO qday and ziprasidone 20mg PO qhs for bipolar depression. The patient is encouraged to talk about his legal situation with his PO and let us know if inpatient rehab is something he would like to be referred to. Results of MMPI are pending. Continued Medication Management: Start Medication Medications: Current Medications Acetaminophen (Tylenol Tab*) 650 mg PO Q4H PRN PRN Reason: for pain; or Temp >101 F Last Admin: 10/19/16 15:25 Dose: 650 mg Al Hydrox/Mg Hydrox/Simethicone (Maalox Plus*) 30 ml PO Q4H PRN PRN Reason: INDIGESTION Diphenhydramine HCl (Benadryl Po*) 50 mg PO BEDTIME PRN PRN Reason: INSOMNIA Last Admin: 10/19/16 21:26 Dose: 50 mg Hydroxyzine HCl (Atarax Tab*) 25 mg PO Q4H PRN PRN Reason: AGITATION/ANXIETY/INSOMNIA Last Admin: 10/20/16 11:00 Dose: 25 mg Lamotrigine (Lamictal Tab(*)) 50 mg PO DAILY [facility] Last Admin: 10/20/16 10:00 Dose: 50 mg Multi-Ingredient Liniment/Rub (Reji Mulligan*) 1 applic TOPICAL Q2H PRN PRN Reason: PAIN Multivitamins (Theragran Tab*) 1 tab PO DAILY [facility] Last Admin: 10/20/16 10:00 Dose: 1 tab Naltrexone HCl (Naltrexone (Nf)) 50 mg PO DAILY [facility] PRN Reason: Protocol Last Admin: 10/20/16 10:00 Dose: 50 mg Naproxen (Naprosyn Tab*) 500 mg PO BID PRN PRN Reason: PAIN Last Admin: 10/20/16 11:00 Dose: 500 mg Thiamine HCl (Vitamin B-1 Tab*) 100 mg PO DAILY [facility] Last Admin: 10/20/16 10:00 Dose: 100 mg Ziprasidone (Geodon (Generic) *) 20 mg PO BEDTIME [facility] Last Admin: 10/19/16 20:12 Dose: 20 mg - Discharge Plan Discharge Plan: Inpatient Hospitalization Lab Results - Lab Results Lab Results: 10/20/16 10/20/16 07:25 07:25 Hemoglobin A1c 5.3 Triglycerides 100 Cholesterol 160 LDL Cholesterol 98 HDL Cholesterol 42.1
[2016-10-20] MEDS: Ziprasidone * 20 MG CAP (generic Geodon) PO SCH (20:06)
[2016-10-20] MEDS: Analgesic BALM* 114 GM TOPICAL PRN (20:08)
[2016-10-20] MEDS: Acetaminophen TAB* 325 MG PO PRN (20:15)
[2016-10-20] MEDS: diPHENhydraMINE PO* 50 MG PO PRN (22:05)
[2016-10-21] MEDS: Naltrexone (NF) 50 MG TAB PO SCH (08:41)
[2016-10-21] MEDS: lamoTRIgine TAB(*) 25 MG PO SCH (08:41)
[2016-10-21] MEDS: Vitamin THERAPEUTIC TAB PO SCH (08:41)
[2016-10-21] MEDS: Thiamine TAB* 100 MG TAB PO SCH (08:41)
[2016-10-21] MEDS: Acetaminophen TAB* 325 MG PO PRN (08:42)
[2016-10-21] MEDS ORDERED: Magnesium Hydroxide LIQ* 30 ML UDC PO PRN (12:03)
--- NOTE | 2016-10-21 14:39 | PN ---
Subjective - Subjective Service Type: 61285 Hosp care 15 min low complexity Subjective: The patient's mood continues to be stable and he denies SI or HI. He has spoken with his PO, Afsaneh Chamberlain, who is strongly encouraging inpatient rehab placement following discharge. The patient is agreeable with this and has signed ROIs for the [facility] program in [place], [place]. He is tolerating his medications well. Objective - Appearance Appearance: Well Developed/Nourished Dysmorphic Features: No Hygiene: Normal Grooming: Well Kept - Behavior Psychomotor Activities: Normal Exhibits Abnormal Movement: No - Attitude and Relatedness Attitude and Relatedness: Cooperative Eye Contact: Good - Speech Quality: Unpressured Latencies: Normal Quantity: Appropriate - Mood Patient's Decription of Mood: "Good" - Affect Observed Affect: Good Affect Consistent with: Euthymia - Thought Process Patient's Thought Process: Coherent Thought Content: No Passive Wish, No Suicidal Planning, No Homicidal Ideation, No Paranoid Ideation - Sensorium Experiencing Hallucinations: No, Sensorium is Clear Type of Hallucinations: Visual: No, Auditory: No, Command: No - Level of Consciousness Level of Consciousness: Alert Orientation: Yes Intact, Yes Orientated to Time, Yes Orientated to Place, Yes Orientated to Person - Impulse Control Impulse Control: Tenuous - Insight and Judgement Insight and Judgement: Fair - Group Participation Particating in Group Activities: Yes - Medication Management Medication Management Adherence: Yes Assessment - Assessment Merits Inpatient Hospitalization: Consolidate Improvements, Pending Safe DC Plan Inpatient DSM-IV Dx: Bipolar Depression Clinical Impression: 36 y.o. , white male with a history of bipolar DO, alcohol and cocaine abuse arriving voluntarily to the ER complaining of depressed mood and SI with thoughts to cut himself with a knife. Plan - Plan Treatment Plan: Name: MARCO ANTONIO VASQUES Birthdate: 1980 [id number] The patient is receiving lamotrigine 50mg PO qday and ziprasidone 20mg PO qhs for bipolar depression. We will increase lamotrigine to 75mg daily starting this weekend. Likely transfer to [facility] next week for intensive inpatient drug/ alcohol rehab. Continued Medication Management: Start Medication Medications: Current Medications Acetaminophen (Tylenol Tab*) 650 mg PO Q4H PRN PRN Reason: for pain; or Temp >101 F Last Admin: 10/21/16 08:42 Dose: 650 mg Al Hydrox/Mg Hydrox/Simethicone (Maalox Plus*) 30 ml PO Q4H PRN PRN Reason: INDIGESTION Diphenhydramine HCl (Benadryl Po*) 50 mg PO BEDTIME PRN PRN Reason: INSOMNIA Last Admin: 10/20/16 22:05 Dose: 50 mg Hydroxyzine HCl (Atarax Tab*) 25 mg PO Q4H PRN PRN Reason: AGITATION/ANXIETY/INSOMNIA Last Admin: 10/20/16 20:07 Dose: 25 mg Lamotrigine (Lamictal Tab(*)) 50 mg PO DAILY [facility] Last Admin: 10/21/16 08:41 Dose: 50 mg Magnesium Hydroxide (Milk Of Magnesia Liq*) 30 ml PO Q4H PRN PRN Reason: CONSTIPATION Last Admin: 10/21/16 12:39 Dose: 30 ml Multi-Ingredient Liniment/Rub (Reji Mulligan*) 1 applic TOPICAL Q2H PRN PRN Reason: PAIN Last Admin: 10/20/16 20:08 Dose: 1 applic Multivitamins (Theragran Tab*) 1 tab PO DAILY [facility] Last Admin: 10/21/16 08:41 Dose: 1 tab Naltrexone HCl (Naltrexone (Nf)) 50 mg PO DAILY [facility] PRN Reason: Protocol Last Admin: 10/21/16 08:41 Dose: 50 mg Naproxen (Naprosyn Tab*) 500 mg PO BID PRN PRN Reason: PAIN Last Admin: 10/20/16 11:00 Dose: 500 mg Thiamine HCl (Vitamin B-1 Tab*) 100 mg PO DAILY [facility] Last Admin: 10/21/16 08:41 Dose: 100 mg Tuberculin PPD (Tuberculin Ppd Test Dose*) 5 tu INTRADERM ONCE [facility] Stop: 10/21/16 23:59 Ziprasidone (Geodon (Generic) *) 20 mg PO BEDTIME [facility] Last Admin: 10/20/16 20:06 Dose: 20 mg - Discharge Plan Discharge Plan: Drug/Alcohol Rehab
[2016-10-21] MEDS ORDERED: PPD Reading RESULTS NOTE SCH (15:00)
[2016-10-21] MEDS ORDERED: PPD test dose* 5 TU/0.1 ML TEST (*USE PPD ORDER SET*) INTRADERM SCH (15:00)
[2016-10-21] MEDS ORDERED: Tuberculin PPD* 5 TU/0.1 ML 0.1 ML INTRADERM ONE (15:00)
[2016-10-21] MEDS: hydrOXYzine HCL TAB* 25 MG PO PRN ×2 (16:01→19:03)
[2016-10-21] MEDS: Ziprasidone * 20 MG CAP (generic Geodon) PO SCH (20:26)
[2016-10-21] MEDS: diPHENhydraMINE PO* 50 MG PO PRN (21:22)
[2016-10-22] MEDS: Vitamin THERAPEUTIC TAB PO SCH (08:23)
[2016-10-22] MEDS: Naltrexone (NF) 50 MG TAB PO SCH (08:24)
[2016-10-22] MEDS: lamoTRIgine TAB(*) 25 MG PO SCH (08:24)
[2016-10-22] MEDS: Thiamine TAB* 100 MG TAB PO SCH (08:24)
[2016-10-22] MEDS: Naproxen TAB* 250 MG PO PRN ×2 (08:25→20:13)
[2016-10-22] MEDS: hydrOXYzine HCL TAB* 25 MG PO PRN ×3 (13:19→21:26)
[2016-10-22] MEDS: Acetaminophen TAB* 325 MG PO PRN (16:50)
[2016-10-22] MEDS: Ziprasidone * 20 MG CAP (generic Geodon) PO SCH (20:13)
[2016-10-22] MEDS: Analgesic BALM* 114 GM TOPICAL PRN (20:15)
[2016-10-22] MEDS: diPHENhydraMINE PO* 50 MG PO PRN (21:27)
[2016-10-23] MEDS: Analgesic BALM* 114 GM TOPICAL SCH (07:54)
[2016-10-23] MEDS: lamoTRIgine TAB(*) 25 MG PO SCH (08:10)
[2016-10-23] MEDS: Naproxen TAB* 250 MG PO PRN (08:10)
[2016-10-23] MEDS: Thiamine TAB* 100 MG TAB PO SCH (08:10)
[2016-10-23] MEDS: Vitamin THERAPEUTIC TAB PO SCH (08:10)
[2016-10-23] MEDS: Naltrexone (NF) 50 MG TAB PO SCH (08:11)
[2016-10-23] MEDS: hydrOXYzine HCL TAB* 25 MG PO PRN ×2 (12:38→20:13)
[2016-10-23] MEDS: diPHENhydraMINE PO* 50 MG PO PRN ×2 (16:07→22:26)
[2016-10-23] MEDS: Acetaminophen TAB* 325 MG PO PRN (17:27)
[2016-10-23] MEDS: Ziprasidone * 20 MG CAP (generic Geodon) PO SCH (20:12)
[2016-10-24] MEDS: Thiamine TAB* 100 MG TAB PO SCH (08:14)
[2016-10-24] MEDS: lamoTRIgine TAB(*) 25 MG PO SCH (08:14)
[2016-10-24] MEDS: Vitamin THERAPEUTIC TAB PO SCH (08:14)
[2016-10-24] MEDS: Naltrexone (NF) 50 MG TAB PO SCH (08:14)
[2016-10-24] MEDS: Naproxen TAB* 250 MG PO PRN ×2 (08:15→20:26)
--- NOTE | 2016-10-24 12:42 | PN ---
Subjective - Subjective Service Type: 52322 Hosp care 15 min low complexity Subjective: The patient endorses significant anxiety over the weekend and feels the hydroxyzine is not covering it. He denies depression or SI and remains agreeable to follow up treatment at [facility] inpatient rehab. He is inquiring about follow up treatment for his right hand fracture. Objective - Appearance Appearance: Well Developed/Nourished Dysmorphic Features: No Hygiene: Normal Grooming: Fairly Well Kept - Behavior Psychomotor Activities: Normal Exhibits Abnormal Movement: No - Attitude and Relatedness Attitude and Relatedness: Cooperative Eye Contact: Good - Speech Quality: Unpressured Latencies: Normal Quantity: Appropriate - Mood Patient's Decription of Mood: "Anxious" - Affect Observed Affect: Fair Affect Consistent with: Euthymia - Thought Process Patient's Thought Process: Coherent Thought Content: No Passive Wish, No Suicidal Planning, No Homicidal Ideation, No Paranoid Ideation - Sensorium Experiencing Hallucinations: No, Sensorium is Clear Type of Hallucinations: Visual: No, Auditory: No, Command: No - Level of Consciousness Level of Consciousness: Alert Orientation: Yes Intact, Yes Orientated to Time, Yes Orientated to Place, Yes Orientated to Person - Impulse Control Impulse Control: Tenuous - Insight and Judgement Insight and Judgement: Fair - Group Participation Particating in Group Activities: Yes - Medication Management Medication Management Adherence: Yes Assessment - Assessment Merits Inpatient Hospitalization: Consolidate Improvements, Pending Safe DC Plan Inpatient DSM-IV Dx: Bipolar Depression Clinical Impression: 36 y.o. , white male with a history of bipolar DO, alcohol and cocaine abuse arriving voluntarily to the ER complaining of depressed mood and SI with thoughts to cut himself with a knife. Plan - Plan Treatment Plan: Name: MARCO ANTONIO VASQUES Birthdate: 1980 [id number] The patient is receiving lamotrigine 75mg PO qday and ziprasidone 20mg PO qhs for bipolar depression. For anxiety we will add clonidine 0.1mg PO TID prn and he can alternate this with hydroxyzine. Pending transfer to [facility] on October 28 for intensive inpatient drug/alcohol rehab. I have called the orthopedics department for consultation and await a return call. Continued Medication Management: Start Medication Medications: Current Medications Acetaminophen (Tylenol Tab*) 650 mg PO Q4H PRN PRN Reason: for pain; or Temp >101 F Last Admin: 10/23/16 17:27 Dose: 650 mg Al Hydrox/Mg Hydrox/Simethicone (Maalox Plus*) 30 ml PO Q4H PRN PRN Reason: INDIGESTION Clonidine HCl (Catapres Tab*) 0.1 mg PO TID PRN PRN Reason: ANXIETY Diphenhydramine HCl (Benadryl Po*) 50 mg PO BEDTIME PRN PRN Reason: INSOMNIA Last Admin: 10/23/16 22:26 Dose: 50 mg Hydroxyzine HCl (Atarax Tab*) 25 mg PO Q4H PRN PRN Reason: AGITATION/ANXIETY/INSOMNIA Last Admin: 10/23/16 20:13 Dose: 25 mg Lamotrigine (Lamictal Tab(*)) 75 mg PO DAILY [facility] Last Admin: 10/24/16 08:14 Dose: 75 mg Magnesium Hydroxide (Milk Of Magnesia Liq*) 30 ml PO Q4H PRN PRN Reason: CONSTIPATION Last Admin: 10/21/16 12:39 Dose: 30 ml Multi-Ingredient Liniment/Rub (Reji Mulligan*) 1 applic TOPICAL Q2H PRN PRN Reason: PAIN Last Admin: 10/22/16 20:15 Dose: 1 applic Multivitamins (Theragran Tab*) 1 tab PO DAILY [facility] Last Admin: 10/24/16 08:14 Dose: 1 tab Naltrexone HCl (Naltrexone (Nf)) 50 mg PO DAILY [facility] PRN Reason: Protocol Last Admin: 10/24/16 08:14 Dose: 50 mg Naproxen (Naprosyn Tab*) 500 mg PO BID PRN PRN Reason: PAIN Last Admin: 10/24/16 08:15 Dose: 500 mg Pharmacy Profile Note (Ppd Reading Note*) 1 note .SEE ORDER ONCE [facility] Stop: 10/24/16 23:59 Thiamine HCl (Vitamin B-1 Tab*) 100 mg PO DAILY [facility] Last Admin: 10/24/16 08:14 Dose: 100 mg Ziprasidone (Geodon (Generic) *) 20 mg PO BEDTIME [facility] Last Admin: 10/23/16 20:12 Dose: 20 mg - Discharge Plan Discharge Plan: Inpatient Hospitalization
[2016-10-24] MEDS: cloNIDine TAB* 0.1 MG PO PRN ×2 (13:05→20:26)
[2016-10-24] MEDS: Acetaminophen TAB* 325 MG PO PRN (15:05)
[2016-10-24] MEDS: Analgesic BALM* 114 GM TOPICAL PRN (15:05)
[2016-10-24] MEDS: hydrOXYzine HCL TAB* 25 MG PO PRN (16:18)
[2016-10-24] MEDS: Ziprasidone * 20 MG CAP (generic Geodon) PO SCH (20:27)
[2016-10-25] MEDS: lamoTRIgine TAB(*) 25 MG PO SCH (08:51)
[2016-10-25] MEDS: Naproxen TAB* 250 MG PO PRN ×2 (08:51→21:19)
[2016-10-25] MEDS: Thiamine TAB* 100 MG TAB PO SCH (08:53)
[2016-10-25] MEDS: Naltrexone (NF) 50 MG TAB PO SCH (08:53)
[2016-10-25] MEDS: Vitamin THERAPEUTIC TAB PO SCH (08:53)
[2016-10-25] MEDS: cloNIDine TAB* 0.1 MG PO PRN (12:27)
[2016-10-25] MEDS: Analgesic BALM* 114 GM TOPICAL PRN (14:06)
--- NOTE | 2016-10-25 16:14 | PN ---
Subjective - Subjective Service Type: 53236 Hosp care 15 min low complexity Subjective: The patient is tolerating his medicines well and mood has remained sufficiently stable under his current regimen. He does continue to complain of back pain, which is not resolved by scheduled naproxen or prn tylenol. He denies SI. I spoke with Dr. Cline, textile converter provider for orthopedics, who reviewed the patient's hand x-ray and recommends that his splint remain intact for a total of 4 weeks. Objective - Appearance Appearance: Healthy Appearing Dysmorphic Features: No Hygiene: Normal Grooming: Well Kept - Behavior Psychomotor Activities: Normal Exhibits Abnormal Movement: No - Attitude and Relatedness Attitude and Relatedness: Cooperative Eye Contact: Good - Speech Quality: Unpressured Latencies: Normal Quantity: Appropriate - Mood Patient's Decription of Mood: "Good" - Affect Observed Affect: Good Affect Consistent with: Euthymia - Thought Process Patient's Thought Process: Coherent Thought Content: No Passive Wish, No Suicidal Planning, No Homicidal Ideation, No Paranoid Ideation - Sensorium Experiencing Hallucinations: No, Sensorium is Clear Type of Hallucinations: Visual: No, Auditory: No, Command: No - Level of Consciousness Level of Consciousness: Alert Orientation: Yes Intact, Yes Orientated to Time, Yes Orientated to Place, Yes Orientated to Person - Impulse Control Impulse Control: Tenuous - Insight and Judgement Insight and Judgement: Fair - Group Participation Particating in Group Activities: Yes - Medication Management Medication Management Adherence: Yes Assessment - Assessment Merits Inpatient Hospitalization: Pending Safe DC Plan Inpatient DSM-IV Dx: Bipolar Depression Clinical Impression: 36 y.o. , white male with a history of bipolar DO, alcohol and cocaine abuse arriving voluntarily to the ER complaining of depressed mood and SI with thoughts to cut himself with a knife. Plan - Plan Treatment Plan: Name: MARCO ANTONIO VASQUES Birthdate: 1980 [id number] The patient is receiving lamotrigine 75mg PO qday and ziprasidone 20mg PO qhs for bipolar depression. We will add a 5% lidocaine patch to his back for additional pain relief. He is pending transfer to [facility] on October 28 for intensive inpatient drug/alcohol rehab. Continued Medication Management: Different Medication Medications: Current Medications Acetaminophen (Tylenol Tab*) 650 mg PO Q4H PRN PRN Reason: for pain; or Temp >101 F Last Admin: 10/24/16 15:05 Dose: 650 mg Al Hydrox/Mg Hydrox/Simethicone (Maalox Plus*) 30 ml PO Q4H PRN PRN Reason: INDIGESTION Clonidine HCl (Catapres Tab*) 0.1 mg PO TID PRN PRN Reason: ANXIETY Last Admin: 10/25/16 12:27 Dose: 0.1 mg Diphenhydramine HCl (Benadryl Po*) 50 mg PO BEDTIME PRN PRN Reason: INSOMNIA Last Admin: 10/23/16 22:26 Dose: 50 mg Hydroxyzine HCl (Atarax Tab*) 25 mg PO Q4H PRN PRN Reason: AGITATION/ANXIETY/INSOMNIA Last Admin: 10/24/16 16:18 Dose: 25 mg Lamotrigine (Lamictal Tab(*)) 75 mg PO DAILY [facility] Last Admin: 10/25/16 08:51 Dose: 75 mg Magnesium Hydroxide (Milk Of Magnesia Liq*) 30 ml PO Q4H PRN PRN Reason: CONSTIPATION Last Admin: 10/21/16 12:39 Dose: 30 ml Multi-Ingredient Liniment/Rub (Reji Mulligan*) 1 applic TOPICAL Q2H PRN PRN Reason: PAIN Last Admin: 10/25/16 14:06 Dose: 1 applic Multivitamins (Theragran Tab*) 1 tab PO DAILY [facility] Last Admin: 10/25/16 08:53 Dose: 1 tab Naltrexone HCl (Naltrexone (Nf)) 50 mg PO DAILY [facility] PRN Reason: Protocol Last Admin: 10/25/16 08:53 Dose: 50 mg Naproxen (Naprosyn Tab*) 500 mg PO BID PRN PRN Reason: PAIN Last Admin: 10/25/16 08:51 Dose: 500 mg Thiamine HCl (Vitamin B-1 Tab*) 100 mg PO DAILY [facility] Last Admin: 10/25/16 08:53 Dose: 100 mg Ziprasidone (Geodon (Generic) *) 20 mg PO BEDTIME [facility] Last Admin: 10/24/16 20:27 Dose: 20 mg - Discharge Plan Discharge Plan: Drug/Alcohol Rehab
[2016-10-25] MEDS: Lidocaine PATCH 5%* 1 PATCH TRANSDERM SCH (17:09)
[2016-10-25] MEDS: hydrOXYzine HCL TAB* 25 MG PO PRN (19:08)
[2016-10-25] MEDS: Lidocaine Patch REMOVE* 1 NOTE MISC SCH (19:24)
[2016-10-25] MEDS: Ziprasidone * 20 MG CAP (generic Geodon) PO SCH (21:19)
[2016-10-25] MEDS: diPHENhydraMINE PO* 50 MG PO PRN (21:19)
[2016-10-26] MEDS: Naltrexone (NF) 50 MG TAB PO SCH (08:22)
[2016-10-26] MEDS: Naproxen TAB* 250 MG PO PRN ×2 (08:22→20:23)
[2016-10-26] MEDS: Thiamine TAB* 100 MG TAB PO SCH (08:23)
[2016-10-26] MEDS: lamoTRIgine TAB(*) 25 MG PO SCH (08:23)
[2016-10-26] MEDS: Vitamin THERAPEUTIC TAB PO SCH (08:23)
[2016-10-26] MEDS: Lidocaine PATCH 5%* 1 PATCH TRANSDERM SCH (09:30)
--- NOTE | 2016-10-26 13:13 | PN ---
[facility]: Group Therapy Note - Service Type Service Type: 01125 Group Psychotherapy - Cognitive Behavioral Group Therapy ( CBT):Patient was attentive and participatory in CBT programming this morning, and remained in good behavioral control. Patient expressed positive insights regarding relevant treatment interventions and goals.
[2016-10-26] MEDS: cloNIDine TAB* 0.1 MG PO PRN (14:03)
[2016-10-26] MEDS: Acetaminophen TAB* 325 MG PO PRN (14:03)
--- NOTE | 2016-10-26 14:22 | PN ---
Subjective - Subjective Service Type: 04701 Hosp care 15 min low complexity Subjective: The patient is doing well and looking forward to transfer to the [facility] inpatient rehab on Monday. He does complain of eczema on his face and throat, requesting a cream for this. He denies SI and states depression and anxiety are improving. Objective - Appearance Appearance: Well Developed/Nourished Dysmorphic Features: No Hygiene: Normal Grooming: Fairly Well Kept - Behavior Psychomotor Activities: Normal Exhibits Abnormal Movement: No - Attitude and Relatedness Attitude and Relatedness: Cooperative Eye Contact: Good - Speech Quality: Unpressured Latencies: Normal Quantity: Appropriate - Mood Patient's Decription of Mood: "Good" - Affect Observed Affect: Good Affect Consistent with: Euthymia - Thought Process Patient's Thought Process: Coherent Thought Content: No Passive Wish, No Suicidal Planning, No Homicidal Ideation, No Paranoid Ideation - Sensorium Experiencing Hallucinations: No, Sensorium is Clear Type of Hallucinations: Visual: No, Auditory: No, Command: No - Level of Consciousness Level of Consciousness: Alert Orientation: Yes Intact, Yes Orientated to Time, Yes Orientated to Place, Yes Orientated to Person - Impulse Control Impulse Control: Intact - Insight and Judgement Insight and Judgement: Good - Group Participation Particating in Group Activities: Yes - Medication Management Medication Management Adherence: Yes Assessment - Assessment Merits Inpatient Hospitalization: Pending Safe DC Plan Inpatient DSM-IV Dx: Bipolar Depression Clinical Impression: 36 y.o. , white male with a history of bipolar DO, alcohol and cocaine abuse arriving voluntarily to the ER complaining of depressed mood and SI with thoughts to cut himself with a knife. Plan - Plan Treatment Plan: Name: MARCO ANTONIO VASQUES Birthdate: 1980 [id number] The patient is improving on lamotrigine 75mg PO qday and ziprasidone 20mg PO qhs for bipolar depression. Plan is to increase lamotrigine to 100mg PO qday on Monday before discharge. We will add 1% hydrocortisone cream for topical treatment of eczema. He is pending transfer to [facility] on October 28 for intensive inpatient drug/alcohol rehab. Continued Medication Management: Different Medication Medications: Current Medications Acetaminophen (Tylenol Tab*) 650 mg PO Q4H PRN PRN Reason: for pain; or Temp >101 F Last Admin: 10/26/16 14:03 Dose: 650 mg Al Hydrox/Mg Hydrox/Simethicone (Maalox Plus*) 30 ml PO Q4H PRN PRN Reason: INDIGESTION Clonidine HCl (Catapres Tab*) 0.1 mg PO TID PRN PRN Reason: ANXIETY Last Admin: 10/26/16 14:03 Dose: 0.1 mg Diphenhydramine HCl (Benadryl Po*) 50 mg PO BEDTIME PRN PRN Reason: INSOMNIA Last Admin: 10/25/16 21:19 Dose: 50 mg Hydroxyzine HCl (Atarax Tab*) 25 mg PO Q4H PRN PRN Reason: AGITATION/ANXIETY/INSOMNIA Last Admin: 10/25/16 19:08 Dose: 25 mg Lamotrigine (Lamictal Tab(*)) 75 mg PO DAILY [facility] Last Admin: 10/26/16 08:23 Dose: 75 mg Lidocaine (Lidoderm 5% Patch*) 1 patch TRANSDERM 0900 [facility] Last Admin: 10/26/16 09:30 Dose: 1 patch Magnesium Hydroxide (Milk Of Magnesia Liq*) 30 ml PO Q4H PRN PRN Reason: CONSTIPATION Last Admin: 10/21/16 12:39 Dose: 30 ml Multi-Ingredient Liniment/Rub (Reji Mulligan*) 1 applic TOPICAL Q2H PRN PRN Reason: PAIN Last Admin: 10/25/16 14:06 Dose: 1 applic Multivitamins (Theragran Tab*) 1 tab PO DAILY [facility] Last Admin: 10/26/16 08:23 Dose: 1 tab Naltrexone HCl (Naltrexone (Nf)) 50 mg PO DAILY [facility] PRN Reason: Protocol Last Admin: 10/26/16 08:22 Dose: 50 mg Naproxen (Naprosyn Tab*) 500 mg PO BID PRN PRN Reason: PAIN Last Admin: 10/26/16 08:22 Dose: 500 mg Pharmacy Profile Note (Lidocaine Patch Remove*) 1 note N/A 2100 [facility] Last Admin: 10/25/16 19:24 Dose: 1 note Thiamine HCl (Vitamin B-1 Tab*) 100 mg PO DAILY [facility] Last Admin: 10/26/16 08:23 Dose: 100 mg Ziprasidone (Geodon (Generic) *) 20 mg PO BEDTIME [facility] Last Admin: 10/25/16 21:19 Dose: 20 mg - Discharge Plan Discharge Plan: Drug/Alcohol Rehab
[2016-10-26] MEDS: hydrOXYzine HCL TAB* 25 MG PO PRN (18:41)
[2016-10-26] MEDS: Ziprasidone * 20 MG CAP (generic Geodon) PO SCH (20:23)
[2016-10-26] MEDS: Lidocaine Patch REMOVE* 1 NOTE MISC SCH (20:42)
[2016-10-26] MEDS: Hydrocortisone 1% CREAM* 30 GM TUBE TOPICAL PRN (21:37)
[2016-10-26] MEDS: diPHENhydraMINE PO* 50 MG PO PRN (22:27)
[2016-10-27] MEDS: Thiamine TAB* 100 MG TAB PO SCH (09:24)
[2016-10-27] MEDS: Naltrexone (NF) 50 MG TAB PO SCH (09:24)
[2016-10-27] MEDS: Vitamin THERAPEUTIC TAB PO SCH (09:24)
[2016-10-27] MEDS: lamoTRIgine TAB(*) 25 MG PO SCH (09:24)
[2016-10-27] MEDS: Naproxen TAB* 250 MG PO PRN ×2 (09:25→20:43)
[2016-10-27] MEDS: Lidocaine PATCH 5%* 1 PATCH TRANSDERM SCH (09:26)
[2016-10-27] MEDS: Hydrocortisone 1% CREAM* 30 GM TUBE TOPICAL PRN (10:18)
--- NOTE | 2016-10-27 14:34 | PN ---
Subjective - Subjective Service Type: [id number] Hosp care 15 min low complexity Subjective: Patient complains only of poor sleep, seeking resumption of melatonin therapy. Feels mood is improved and looking forward to transfer to [facility] rehab program tomorrow. Denies SI or HI. Objective - Appearance Appearance: Well Developed/Nourished Dysmorphic Features: No Hygiene: Normal Grooming: Well Kept - Behavior Psychomotor Activities: Normal Exhibits Abnormal Movement: No - Attitude and Relatedness Attitude and Relatedness: Cooperative Eye Contact: Good - Speech Quality: Unpressured Latencies: Normal Quantity: Appropriate - Mood Patient's Decription of Mood: "Good" - Affect Observed Affect: Good Affect Consistent with: Euthymia - Thought Process Patient's Thought Process: Coherent Thought Content: No Passive Wish, No Suicidal Planning, No Homicidal Ideation, No Paranoid Ideation - Sensorium Experiencing Hallucinations: No, Sensorium is Clear Type of Hallucinations: Visual: No, Auditory: No, Command: No - Level of Consciousness Level of Consciousness: Alert Orientation: Yes Intact, Yes Orientated to Time, Yes Orientated to Place, Yes Orientated to Person - Impulse Control Impulse Control: Intact - Insight and Judgement Insight and Judgement: Good - Group Participation Particating in Group Activities: Yes - Medication Management Medication Management Adherence: Yes Assessment - Assessment Merits Inpatient Hospitalization: Pending Safe DC Plan Inpatient DSM-IV Dx: Bipolar Depression Clinical Impression: 36 y.o. , white male with a history of bipolar DO, alcohol and cocaine abuse arriving voluntarily to the ER complaining of depressed mood and SI with thoughts to cut himself with a knife. Plan - Plan Treatment Plan: Name: MARCO ANTONIO VASQUES Birthdate: 1980 [id number] The patient is improving on lamotrigine 75mg PO qday and ziprasidone 20mg PO qhs for bipolar depression. Will increase lamotrigine to 100mg PO qday tomorrow before discharge. We will add melatonin 1 tab PO qhs as scheduled sleep aid. He is pending transfer to [facility] tomorrow, Monday, October 28 for intensive inpatient drug/alcohol rehab. Continued Medication Management: Different Medication Medications: Current Medications Acetaminophen (Tylenol Tab*) 650 mg PO Q4H PRN PRN Reason: for pain; or Temp >101 F Last Admin: 10/26/16 14:03 Dose: 650 mg Al Hydrox/Mg Hydrox/Simethicone (Maalox Plus*) 30 ml PO Q4H PRN PRN Reason: INDIGESTION Clonidine HCl (Catapres Tab*) 0.1 mg PO TID PRN PRN Reason: ANXIETY Last Admin: 10/26/16 14:03 Dose: 0.1 mg Diphenhydramine HCl (Benadryl Po*) 50 mg PO BEDTIME PRN PRN Reason: INSOMNIA Last Admin: 10/26/16 22:27 Dose: 50 mg Hydrocortisone (Hytone Cream 1%*) 1 applic TOPICAL TID PRN PRN Reason: DRY SKIN Last Admin: 10/27/16 10:18 Dose: 1 applic Hydroxyzine HCl (Atarax Tab*) 25 mg PO Q4H PRN PRN Reason: AGITATION/ANXIETY/INSOMNIA Last Admin: 10/26/16 18:41 Dose: 25 mg Lamotrigine (Lamictal Tab(*)) 100 mg PO DAILY [facility] Lidocaine (Lidoderm 5% Patch*) 1 patch TRANSDERM 0900 [facility] Last Admin: 10/27/16 09:26 Dose: 1 patch Magnesium Hydroxide (Milk Of Magnantonieta Liq*) 30 ml PO Q4H PRN PRN Reason: CONSTIPATION Last Admin: 10/21/16 12:39 Dose: 30 ml Melatonin (Melatonin (Nf)) 1 tab PO BEDTIME [facility] Multi-Ingredient Liniment/Rub (Reji Mulligan*) 1 applic TOPICAL Q2H PRN PRN Reason: PAIN Last Admin: 10/25/16 14:06 Dose: 1 applic Multivitamins (Theragran Tab*) 1 tab PO DAILY [facility] Last Admin: 10/27/16 09:24 Dose: 1 tab Naltrexone HCl (Naltrexone (Nf)) 50 mg PO DAILY [facility] PRN Reason: Protocol Last Admin: 10/27/16 09:24 Dose: 50 mg Naproxen (Naprosyn Tab*) 500 mg PO BID PRN PRN Reason: PAIN Last Admin: 10/27/16 09:25 Dose: 500 mg Pharmacy Profile Note (Lidocaine Patch Remove*) 1 note N/A 2100 [facility] Last Admin: 10/26/16 20:42 Dose: 1 note Thiamine HCl (Vitamin B-1 Tab*) 100 mg PO DAILY [facility] Last Admin: 10/27/16 09:24 Dose: 100 mg Ziprasidone (Geodon (Generic) *) 20 mg PO BEDTIME [facility] Last Admin: 10/26/16 20:23 Dose: 20 mg - Discharge Plan Discharge Plan: Drug/Alcohol Rehab
[2016-10-27] MEDS: Acetaminophen TAB* 325 MG PO PRN (16:35)
[2016-10-27] MEDS: hydrOXYzine HCL TAB* 25 MG PO PRN (18:26)
[2016-10-27] MEDS: Analgesic BALM* 114 GM TOPICAL PRN (18:27)
[2016-10-27] MEDS: Lidocaine Patch REMOVE* 1 NOTE MISC SCH (20:30)
[2016-10-27] MEDS: Ziprasidone * 20 MG CAP (generic Geodon) PO SCH (20:42)
[2016-10-27] MEDS ORDERED: CMCS:Melatonin (NF) 3 MG TAB PO SCH (21:00)
[2016-10-28 07:48] VITALS: BP 136/89
[2016-10-28] MEDS: Vitamin THERAPEUTIC TAB PO SCH (08:12)
[2016-10-28] MEDS: Thiamine TAB* 100 MG TAB PO SCH (08:12)
[2016-10-28] MEDS: hydrOXYzine HCL TAB* 25 MG PO PRN (08:12)
[2016-10-28] MEDS: Naproxen TAB* 250 MG PO PRN (08:12)
[2016-10-28] MEDS: Naltrexone (NF) 50 MG TAB PO SCH (08:12)
[2016-10-28] MEDS: Lidocaine PATCH 5%* 1 PATCH TRANSDERM SCH (08:37)
[2016-10-28] MEDS ORDERED: lamoTRIgine TAB(*) 100 MG PO SCH (09:00)
--- NOTE | 2016-10-29 03:53 | DS ---
DISCHARGE SUMMARY: DATE OF ADMISSION: 10/14/16 DATE OF DISCHARGE: 10/28/16 DISCHARGE DIAGNOSES: As follows: [place] I: Bipolar disorder, most recent episode depressed, severe without psychotic features; alcohol use disorder; cocaine use disorder. [place] II: Deferred. [place] III: Fractured right fifth metacarpal bone, history of right inguinal hernia repair, history of alcohol withdrawal seizures. [place] IV: Severe, legal and financial stressors. [place] V: At the time of admission was 30 and at the time of discharge is 60. CONDITION AT THE TIME OF DISCHARGE: Improved. The patient's mood is euthymic. His affect is bright. We have seen him for at least a week now, be very involved socially on the milieu participating in groups and spending time with peers and staff. He is very much future oriented indicating that he wants to get clean and sober for his family including his 4-month-old daughter. The patient is agreeable with transfer to inpatient substance abuse rehab and he is being discharged today to the [facility] in [place], [place]. He denies suicidal or homicidal ideations and he appears committed to getting better. DISCHARGE INSTRUCTIONS: To the patient are as follows: A. Medications: The patient is takin. Lamotrigine 100 mg p.o. daily. 2. Ziprasidone 20 mg p.o. q.h.s. 3. Takes Benadryl 50 mg as needed for sleep. 4. Melatonin 3 mg p.o. q.h.s. 5. He takes clonidine 0.1 mg every 8 hours as needed for anxiety. 6. Hydroxyzine 25 mg every 6 hours as needed for anxiety. 7. He takes 1% cream for eczema t.i.d. 8. Naprosyn 500 mg p.o. b.i.d. for pain. B. Diet is regular. C. Activities: As tolerated. The patient is strongly encouraged to abstain from tobacco products; however, he is declining offer of nicotine replacement therapy opting to continue smoking cigarettes for the time being. D. Followup care: The patient is a direct transfer today to the [facility] in [place], [place], where he will receive intensive inpatient substance abuse recovery services. At this time of release from that facility, he will be receiving followup appointments for both mental health and substance abuse services in the community. HOSPITAL COURSE: As follows: Part-A. Reason for admission: The patient is a 36-year-old white male with a history of alcohol abuse, cocaine abuse, and bipolar affective disorder, who arrived on a voluntary basis to our facility having being brought in by the ambulance directly from the [facility] where he had reported to his therapist that he was feeling suicidal with definitive plans to kill himself. During his initial intake evaluation, he reported that his depressive symptoms have been gradually worsening from more than 2 months. He then started drinking briefly believing that this would resolve his feelings of depression, however, it did not. He stopped drinking briefly and tried to get over with, it but for the last couple of days started drinking again and also started abusing cocaine. He reports feeling sad, crying for no reason, feeling helpless, worthless, and guilty. He could not find reasons for the pain that he was feeling stating that he should be happy given the fact that he had a loving and supportive and healthy [id number] daughter. 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 However , during the last few days, he thought about taking pills from his medicine counter or slashing his wrist with one of his cutlery knives. He was able to call his primary lead caregiver, who sent him to [facility], who then sent him to the emergency room. He denied any thoughts of paranoia, hallucinations, delusions, or obsessions, and stated that he felt safe in the hospital. Part-B. Psychiatric treatment rendered: The patient was admitted to the Adult [facility] Unit where he was placed on q.30-minute checks for his own safety. I did screen him and discovered that during prolonged periods of sobriety that he has continued to have episodic mood instability. He does carry a diagnosis of bipolar disorder, but was not on definitive treatment. We made a decision to have a trial of lamotrigine started at 25 mg and slowly incrementally increase to the effective dose of 100 mg daily. Initially, this was augmented with a trial of low-dose Abilify but this gave the patient side effects and was changed to a trial of ziprasidone 20 mg p.o. q.h.s. The patient did well with this and his mood became much more euthymic with his suicidal ideations having completely resolved. He did experience anxiety, which was treated symptomatically with hydroxyzine alternated with low-dose clonidine. He had a number of somatic concerns including the fact that he had a fractured right fifth metacarpal. I was able to contact the orthopedic service, specifically Dr. Poon, who indicated that the patient would need to keep his splint on for approximately 4 weeks and then seek outpatient orthopedic followup. The patient is aware of this. Throughout this hospitalization, Douglas showed significant improvement as the days went by. He tolerated his medications well. He became much more social, much more involved in groups. We did have interactions with his as well as his financial compliance officer and it was felt by all that he would benefit from inpatient rehab following his psychiatric stabilization. Ultimately, he was accepted by the [facility] and is willingly going there on the day of discharge. [id number]/CPS #: [id number] MTDD
== END 2016-10-28 08:55 | DRG 753 ==
LOC: ED 10:49 → BSU 17:30
PROVIDERS: ADMIT Psychiatry & Neurology Psychiatry; ATTEND Psychiatry & Neurology Psychiatry
PROC: 2W3EX1Z Immobilization of Right Hand using Splint (ICD-10-PCS; principal; 2016-10-14)
PROC: GZHZZZZ Group Psychotherapy (ICD-10-PCS; 2016-10-26)
DX: F31.4 Bipolar disorder, current episode depressed, severe, without psychotic features (principal); F41.9 Anxiety disorder, unspecified; Z72.89 Other problems related to lifestyle; F14.90 Cocaine use, unspecified, uncomplicated; X58.XXXA Exposure to other specified factors, initial encounter; Y92.9 Unspecified place or not applicable; Z91.5 Personal history of self-harm; F12.90 Cannabis use, unspecified, uncomplicated; Z81.8 Family history of other mental and behavioral disorders; Z81.1 Family history of alcohol abuse and dependence; Z88.8 Allergy status to other drugs, medicaments and biological substances; G47.30 Sleep apnea, unspecified; K21.9 Gastro-esophageal reflux disease without esophagitis; Z87.891 Personal history of nicotine dependence; M54.9 Dorsalgia, unspecified; R11.0 Nausea; T43.595A Adverse effect of other antipsychotics and neuroleptics, initial encounter; R42 Dizziness and giddiness; S62.346A Nondisplaced fracture of base of fifth metacarpal bone, right hand, initial encounter for closed fracture
CPT/HCPCS: 36415; 80053; 80061; 80307; 80320; 80329; 81003; 83036; 84443; 85025; 90853; 99222; 99231; 99238; A9270-GY; G0480

== ENCOUNTER 2016-11-23 18:12 | Emergency (ER) | payer OTHER ==
[2016-11-23] MEDS ORDERED: NS 0.9% 1000 ML* 1,000 ML IV ONE (19:53)
[2016-11-23] MEDS ORDERED: Pantoprazole IV* 40 MG IV ONE (19:53)
[2016-11-23] MEDS ORDERED: ACETAMINOPHEN IVPB ONE (19:54)
[2016-11-23 20:15] LABS: Hematocrit 41 % (42-52); Hemoglobin 13.9 g/dl (14.0-18.0); Mean Corpuscular HGB Conc 34 g/dl (31-36); Mean Corpuscular Hemoglobin 29 pg (27-31); Mean Corpuscular Volume 85 fL (80-94); Mean Platelet Volume 7 um3 (7.4-10.4); Red Blood Count 4.85 10^6/ul (4.0-5.4); Red Cell Distribution Width 14 % (10.5-15); White Blood Count 9.1 10^3/ul (3.5-10.8)
--- NOTE | 2016-11-23 20:22 | RAD ---
INDICATION: Traumatic fracture right fifth metacarpal COMPARISON: October 14, 2016 TECHNIQUE: AP, lateral, and oblique views were obtained. FINDINGS: There is again a fracture the proximal fifth metacarpal. There is partial interval healing. The fracture fragments are not significantly changed in position. IMPRESSION: PARTIAL HEALING RESPONSE ABOUT THE FRACTURE INVOLVING THE BASE OF THE FIFTH METACARPAL
[2016-11-23 20:23] LABS: Urine Bilirubin Negative (Negative); Urine Glucose Negative (Negative); Urine Nitrite Negative (Negative)
[2016-11-23 20:30] LABS: Albumin 4.4 g/dL (3.2-5.2); BUN/Creatinine Ratio 16.1 (8-20); C Reactive Protein 2.33 mg/L (< 5.00); Calcium 9.8 mg/dL (8.6-10.3); EGFR African American 118.9 (>60); EGFR Non-African American 92.5 (>60); Globulin 3.1 g/dL (2-4); Magnesium 2.1 mg/dL (1.9-2.7); Total Bilirubin 0.2 mg/dL (0.2-1.0); Total Protein 7.5 g/dL (6.4-8.9)
--- NOTE | 2016-11-23 20:57 | RAD ---
INDICATION: Abdominal pain COMPARISON: CT November 24, 2015 TECHNIQUE: Longitudinal and transverse scans of the right upper quadrant were obtained. Doppler interrogation of the hepatic and portal venous system was performed. FINDINGS: Liver: The liver is normal in size and echogenicity. There are no focal masses. The liver measures 17 cm in cephalocaudal dimension. Vessels: There is normal hepatic and portal venous flow. Bile ducts: There is no evidence of intrahepatic or extrahepatic ductal dilatation. The common duct measures 24 cm. Gallbladder: Cholecystectomy. Pancreas: The visualized pancreas appears normal Right kidney: The right kidney is normal in size and echogenicity. There are no masses or calculi. There is no evidence of hydronephrosis. The right kidney measures 11.7 x 5.2 x 6.7 cm. IVC and aorta: The aorta and superior vena cava appear normal. Fluid: There is no ascites. Other: None. IMPRESSION: CHOLECYSTECTOMY. NO ACUTE SONOGRAPHIC FINDINGS.
[2016-11-23] MEDS ORDERED: Iohexol 300* (CONTRAST) 10 ML SDV IV ONE (21:15)
--- NOTE | 2016-11-23 22:16 | RAD ---
INDICATION: Abdominal pain COMPARISON: Abdominal sonogram same date; CT abdomen pelvis November 24, 2015 TECHNIQUE: Axial source images were obtained from the hemidiaphragms to the symphysis pubis following administration of oral and intravenous contrast. 131 mL Omnipaque 300 was utilized. Coronal and sagittal reconstructed images were acquired. Lung bases: The lung bases are clear. Liver: The liver is normal in size. There are no masses. There is no ductal dilatation. Gallbladder: Cholecystectomy. Spleen: The spleen is normal in size. There are no masses. Pancreas: There is no focal pancreatic mass or ductal dilatation. Adrenal glands: There is no evidence of adrenal mass. Kidneys: The kidneys are normal in size and position. There are prompt nephrograms and there is prompt excretion bilaterally. There are no renal parenchymal masses. There is no evidence of nephrolithiasis. Adenopathy: There is no evidence of adenopathy by size criteria. Fluid collections: There is a small cystic-appearing structure in the right iliac fossa immediately anterior to the right iliac vein appearing unchanged. This may represent a lymphocele. Vessels:There are no significant atherosclerotic changes involving the aorta. There is no focal aneurysm. The iliac vessels are normal in caliber. The IVC appears normal. GI tract: There are no acute CT bowel findings. There is no obstruction. The stomach and small bowel appear normal. There is stool throughout the colon. There are no obstructive findings. There are scant diverticula. The appendix is visualized and appears normal. Pelvic organs: The prostate and seminal vesicles appear normal Bladder: The bladder appears trabeculated. Abdominal and pelvic soft tissues: The extraperitoneal abdominal and pelvic soft tissues appear normal.. Osseous structures: There are no acute osseous findings. Other: None IMPRESSION: 1. NO ACUTE CT FINDINGS. NO MASS OR INFLAMMATORY CHANGE. 2. CHOLECYSTECTOMY WITHOUT EVIDENCE OF DUCTAL DILATATION OR CT EVIDENCE OF COMMON DUCT STONE. 3. PROBABLE RIGHT ILIAC FOSSA LYMPHOCELE, UNCHANGED. 4. TRABECULATED BLADDER.
[2016-11-24] MEDS ORDERED: Acetaminophen IV 1GM/100ML * 1,000 MG in PREMIX* 100 ML IVPB ONE (00:34)
[2016-11-24] MEDS ORDERED: PREMIX* 0 ML ONE (00:58)
[2016-11-24] MEDS ORDERED: Acetaminophen TAB* 325 MG ONE (01:34)
[2016-11-24] MEDS ORDERED: Acetaminophen TAB* 325 MG PO ONE (01:42)
[2016-11-24 01:48] VITALS: BP 137/83
--- NOTE | 2016-11-29 21:35 | ED ---
Tomas, DoctorMaura, scribed for Janine Lynn MD on 11/23/16 at 1942 . Abdominal Pain/Male - HPI Summary HPI Summary: 36 year old male arrived to [facility] c/o upper abdominal pain beginning three days ago. His pain has been getting worse since onset and was a 9/10 a few hours [employer] , however he currently rates his pain as a 5/10. Pt also describes nausea and vomiting in addition to his epigastric abdominal pain. He denies any diarrhea, constipation, hematemesis, or hematochezia. Pt also noted a possible fracture in his right hand unrelated to his stomach pain, and chronic back pain that is no different than baseline today. He has a PMHx of stomach bleeding due to OD on ibuprofen (last summer, no official physician dx), inguinal hernia, cholecystectomy, and is a recovering alcoholic. He regularly sees Dr. Gardner ( PCP). - History of Current Complaint Chief Complaint: EDAbdPain Stated Complaint: ABD PAIN Time Seen by Provider: 11/23/16 19:34 Hx Obtained From: Patient Onset/Duration: Gradual Onset Timing: Constant, Lasting Days Severity Initially: Moderate Severity Currently: Moderate Pain Intensity: 5 Pain Scale Used: 0-10 Numeric Location: Epigastric Radiates to: Back Character: Sharp Aggravating Factor(s): Food Alleviating Factor(s): Nothing Associated Signs And Symptoms: Positive: Back Pain, Nausea, Vomiting. Negative : Fever, Constipation, Blood in Stool, Diarrhea - Allergies/Home Medications Allergies/Adverse Reactions: Allergies Allergy/AdvReac Type Severity Reaction Status Date / Time Ibuprofen Allergy Bleeding Verified 11/23/16 18:28 PMH/Surg Hx/FS Hx/Imm Hx Endocrine/Hematology History: Denies: Hx Diabetes, Hx Thyroid Disease Cardiovascular History: Denies: Hx Hypertension, Hx Pacemaker/ICD Respiratory History: Reports: Hx Sleep Apnea - MILD, UNDIAGNOSISED Denies: Hx Asthma, Hx Chronic Obstructive Pulmonary Disease (COPD) GI History: Reports: Hx Gastroesophageal Reflux Disease, Other GI Disorders Denies: Hx Ulcer Musculoskeletal History: Reports: Hx Back Problems - Chronic back problems Sensory History: Denies: Hx Contacts or Glasses, Hx Hearing Aid Opthamlomology History: Denies: Hx Contacts or Glasses Neurological History: Reports: Hx Seizures - 03/2015 AT [facility] - FROM ALCOHOL WITHDRAWAL, NONE SINCE Psychiatric History: Reports: Hx Anxiety - NO MEDS, Hx Depression, Hx Bipolar Disorder, Hx Suicide Attempt - 05/20/13 considered suicide, Hx Substance Abuse - ETOH & COCAINE Denies: Hx Eating Disorder, Hx Panic Disorder, Hx of Violent Episodes Against Others - Surgical History Surgery Procedure, Year, and Place: 2010 RIGHT INGUINAL [facility]ERNIA REPAIR, [facility]. 1998 TONSILLECTOMY, [facility]. 11/2015 ERCP WITH GALLSTONE REMOVAL, [facility], [facility] Hx Anesthesia Reactions: No Infectious Disease History: No Infectious Disease History: Denies: Hx Hepatitis, Hx Human Immunodeficiency Virus (HIV), History Other Infectious Disease, Traveled Outside the [place] in Last 30 Days - Family History Known Family History: Positive: Hypertension, Other - cancer, alcoholism Negative: Renal Disease - Social History Lives: Nursing Home - [facility] Alcohol Use: None Alcohol Amount: 2 months sober Substance Use Type: Reports: None Substance Use Comment - Amount & Last Used: RECOVERING MARIJUANA Hx Tobacco Use: Yes Smoking Status (MU): Former Smoker Type: Cigarettes Amount Used/How Often: Has not smoked in the last 31 days Length of Time of Smoking/Using Tobacco: ON AND OFF FOR ABOUT 20 YEARS Have You Smoked in the Last Year: Yes Review of Systems Negative: Fever Positive: Abdominal Pain, Vomiting, Nausea, Other - no Constipation, no hematemesis, no hematochezia. Negative: Diarrhea Positive: Arthralgia - right hand with healing fracture All Other Systems Reviewed And Are Negative: Yes Physical Exam Triage Information Reviewed: Yes Vital Signs On Initial Exam: Initial Vitals Temp Pulse Resp BP Pulse Ox 98.8 F 86 18 145/90 98 11/23/16 18:26 11/23/16 18:26 11/23/16 18:26 11/23/16 18:26 11/23/16 18:26 Vital Signs Reviewed: Yes Appearance: Positive: No Pain Distress, Well-Nourished, Ill-Appearing - mildly ill-appearing Skin: Positive: Warm, Skin Color Reflects Adequate Perfusion, Dry Head/Face: Positive: Normal Head/Face Inspection Eyes: Positive: Conjunctiva Clear ENT: Positive: Normal ENT inspection Neck: Positive: Supple, Nontender Respiratory/Lung Sounds: Positive: Clear to Auscultation, Breath Sounds Present. Negative: Rales, Rhonchi, Wheezes Cardiovascular: Positive: RRR, Pulses are Symmetrical in both Upper and Lower Extremities. Negative: Murmur, Rub Abdomen Description: Positive: No Organomegaly, Soft. Negative: Nontender - epigastric tenderness, radiates to the back, CVA Tenderness (R), CVA Tenderness (L), Distended, Guarding, Hernia @, Hepatomegaly, McBurney's Point Tenderness, Peritoneal Signs, Pulsatile Mass, Splenomegaly Bowel Sounds: Positive: Present Musculoskeletal: Positive: Strength/ROM Intact, Other - tenderness right 5th metacarpal, minimal swelling, deformity Neurological: Positive: Sensory/Motor Intact, Alert, Oriented to Person Place, Time. Negative: Facial Droop, Focal Deficit @, Slurred Speech Psychiatric: Positive: Normal Diagnostics - Vital Signs Vital Signs Temp Pulse Resp BP Pulse Ox 11/23/16 18:26 98.8 F 86 18 145/90 98 - Laboratory Lab Results: Lab Results 11/23/16 11/23/16 11/23/16 Range/Units 20:05 20:05 20:05 WBC 9.1 (3.5-10.8) 10^3/ul RBC 4.85 (4.0-5.4) 10^6/ul Hgb 13.9 L (14.0-18.0) g/dl Hct 41 L (42-52) % MCV 85 (80-94) fL MCH 29 (27-31) pg MCHC 34 (31-36) g/dl RDW 14 (10.5-15) % Plt Count 389 (150-450) 10^3/ul MPV 7 L (7.4-10.4) um3 Neut % (Auto) 47.5 (38-83) % Lymph % (Auto) 34.5 (25-47) % Pierce % (Auto) 14.1 H (1-9) % Eos % (Auto) 2.4 (0-6) % Baso % (Auto) 1.5 (0-2) % Absolute Neuts (auto) 4.3 (1.5-7.7) 10^3/ul Absolute Lymphs (auto) 3.1 (1.0-4.8) 10^3/ul Absolute Monos (auto) 1.3 H (0-0.8) 10^3/ul Absolute Eos (auto) 0.2 (0-0.6) 10^3/ul Absolute Basos (auto) 0.1 (0-0.2) 10^3/ul Absolute Nucleated RBC 0 10^3/ul Nucleated RBC % 0 INR (Anticoag Therapy) (0.89-1.11) APTT (26.0-36.3) seconds Sodium 136 (133-145) mmol/L Potassium 4.0 (3.5-5.0) mmol/L Chloride 103 (101-111) mmol/L Carbon Dioxide 25 (22-32) mmol/L Anion Gap 8 (2-11) mmol/L BUN 15 (6-24) mg/dL Creatinine 0.93 (0.67-1.17) mg/dL Est GFR ( Amer) 118.9 (>60) Est GFR (Non-Af Amer) 92.5 (>60) BUN/Creatinine Ratio 16.1 (8-20) Glucose 97 (70-100) mg/dL Lactic Acid (0.5-2.0) mmol/L Calcium 9.8 (8.6-10.3) mg/dL Magnesium 2.1 (1.9-2.7) mg/dL Total Bilirubin 0.20 (0.2-1.0) mg/dL AST 20 (13-39) U/L ALT 23 (7-52) U/L Alkaline Phosphatase 61 (34-104) U/L Total Creatine Kinase 125 (10-223) U/L Troponin I 0.00 (<0.04) ng/mL C-Reactive Protein 2.33 (< 5.00) mg/L Total Protein 7.5 (6.4-8.9) g/dL Albumin 4.4 (3.2-5.2) g/dL Globulin 3.1 (2-4) g/dL Albumin/Globulin Ratio 1.4 (1-3) Amylase 56 (29-103) U/L Lipase 34 (11.0-82.0) U/L Urine Color Straw Urine Appearance Clear Urine pH 6.0 (5-9) Ur Specific Saline 1.005 L (1.010-1.030) Urine Protein Negative (Negative) Urine Ketones Negative (Negative) Urine Blood Negative (Negative) Urine Nitrate Negative (Negative) Urine Bilirubin Negative (Negative) Urine Urobilinogen Negative (Negative) Ur Leukocyte Esterase Negative (Negative) Urine Glucose Negative (Negative) 11/23/16 11/23/16 Range/Units 20:05 20:05 WBC (3.5-10.8) 10^3/ul RBC (4.0-5.4) 10^6/ul Hgb (14.0-18.0) g/dl Hct (42-52) % MCV (80-94) fL MCH (27-31) pg MCHC (31-36) g/dl RDW (10.5-15) % Plt Count (150-450) 10^3/ul MPV (7.4-10.4) um3 Neut % (Auto) (38-83) % Lymph % (Auto) (25-47) % Pierce % (Auto) (1-9) % Eos % (Auto) (0-6) % Baso % (Auto) (0-2) % Absolute Neuts (auto) (1.5-7.7) 10^3/ul Absolute Lymphs (auto) (1.0-4.8) 10^3/ul Absolute Monos (auto) (0-0.8) 10^3/ul Absolute Eos (auto) (0-0.6) 10^3/ul Absolute Basos (auto) (0-0.2) 10^3/ul Absolute Nucleated RBC 10^3/ul Nucleated RBC % INR (Anticoag Therapy) 0.89 (0.89-1.11) APTT 28.5 (26.0-36.3) seconds Sodium (133-145) mmol/L Potassium (3.5-5.0) mmol/L Chloride (101-111) mmol/L Carbon Dioxide (22-32) mmol/L Anion Gap (2-11) mmol/L BUN (6-24) mg/dL Creatinine (0.67-1.17) mg/dL Est GFR ( Amer) (>60) Est GFR (Non-Af Amer) (>60) BUN/Creatinine Ratio (8-20) Glucose (70-100) mg/dL Lactic Acid 1.1 (0.5-2.0) mmol/L Calcium (8.6-10.3) mg/dL Magnesium (1.9-2.7) mg/dL Total Bilirubin (0.2-1.0) mg/dL AST (13-39) U/L ALT (7-52) U/L Alkaline Phosphatase (34-104) U/L Total Creatine Kinase (10-223) U/L Troponin I (<0.04) ng/mL C-Reactive Protein (< 5.00) mg/L Total Protein (6.4-8.9) g/dL Albumin (3.2-5.2) g/dL Globulin (2-4) g/dL Albumin/Globulin Ratio (1-3) Amylase (29-103) U/L Lipase (11.0-82.0) U/L Urine Color Urine Appearance Urine pH (5-9) Ur Specific Saline (1.010-1.030) Urine Protein (Negative) Urine Ketones (Negative) Urine Blood (Negative) Urine Nitrate (Negative) Urine Bilirubin (Negative) Urine Urobilinogen (Negative) Ur Leukocyte Esterase (Negative) Urine Glucose (Negative) Result Diagrams: 11/23/16 20:05 11/23/16 20:05 Lab Statement: Any lab studies that have been ordered have been reviewed, and results considered in the medical decision making process. - Radiology Hand X-Ray Radiology Interpretation Completed By: Radiologist - IMPRESSION: PARTIAL HEALING RESPONSE ABOUT THE FRACTURE INVOLVING THE BASE OF THE FIFTH METACARPAL - CT CT A/P CT Interpretation Completed By: Radiologist - IMPRESSION: 1. NO ACUTE CT FINDINGS. NO MASS OR INFLAMMATORY CHANGE. 2. CHOLECYSTECTOMY WITHOUT EVIDENCE OF DUCTAL DILATATION OR CT EVIDENCE OF COMMON DUCT STONE. 3. PROBABLE RIGHT ILIAC FOSSA LYMPHOCELE, UNCHANGED. - Ultrasound No standard instances Ultrasound Interpretation Completed By: Radiologist - Abdomen US - IMPRESSION: CHOLECYSTECTOMY. NO ACUTE SONOGRAPHIC FINDINGS. - EKG 2211 EKG Interpretation: sinus rhythm (64 bpm), normal ANNI Conduction Time, normal qtc, normal axis Re-Evaluation - Re-Evaluation First Eval Re-Evaluation Time: 00:39 Comment: Discussed hand x-ray, CT A/P, and CXR results with pt. Likely Gastritis. Pt advised to use acetaminophen and follow-up with Dr. Gardner. Pt will also be prescribed Protonix to help with gastritis. Pt is ready to be discharged after pain medication. Abdominal Pain Fem Course/Dx - Diagnoses Differential Diagnosis/HQI/PQRI: ACS, Appendicitis, Gall Bladder Disease, Pancreatitis, Peptic Ulcer Disease Provider Diagnoses: Gastritis, Fracture of right hand Discharge - Discharge Plan Condition: Stable Disposition: HOME Prescriptions: Pantoprazole TAB (NF) [Protonix TAB (NF)] 40 mg PO DAILY #30 tab Patient Education Materials: Gastritis (ED), Diet for Stomach Ulcers and Gastritis (ED) Referrals: Kathie Gardner DO [Primary Care Provider] - 3 Days (follow up regarding the abdominal pain. She can refer you to a co founder and president if the abdominal pain continues. ) Oj Nieves MD [Medical Doctor] - 1 Week (regarding your Boxer's fracture) Additional Instructions: Your hand xray shows a healing fracture. You should follow up for this. Your abdominal ultrasound and CT scans did not show any abnormalities. You were given IV acetaminophen for pain. You may take acetaminophen 1 gm four times a day for pain. Stop the naproxen. Return to the ER if you have any new or worsening symptoms. The documentation as recorded by the Doctor ferro Tahera accurately reflects the service I personally performed and the decisions made by , Janine Lynn MD.
== END 2016-11-24 01:48 | disposition home or self-care (01) ==
LOC: ED 18:12
DX: S62.91XA Unspecified fracture of right hand, initial encounter for closed fracture (principal); K29.70 Gastritis, unspecified, without bleeding; M54.9 Dorsalgia, unspecified; R11.2 Nausea with vomiting, unspecified; Z87.891 Personal history of nicotine dependence; X58.XXXA Exposure to other specified factors, initial encounter; Y93.9 Activity, unspecified; Y92.9 Unspecified place or not applicable; Y99.9 Unspecified external cause status
CPT/HCPCS: 36415; 74177; 76705; 80053; 81003; 82150; 82550; 83605; 83690; 83735; 84484; 85025; 85610; 85730; 86140; 93005; 96361; 96374; 99283; A9270-GY; Q9967

== ENCOUNTER 2018-04-02 05:41 | Emergency (ER) | payer OTHER ==
--- NOTE | 2018-04-02 07:08 | ED ---
Lower Extremity - HPI Summary HPI Summary: Pt here w/ Lt toe and foot pain since blunt trauma - History of Current Complaint Chief Complaint: EDExtremityLower Stated Complaint: LT FOOT INJURY Time Seen by Provider: 04/02/18 05:58 Hx Obtained From: Patient Pain Intensity: 1 - Allergies/Home Medications Allergies/Adverse Reactions: Allergies Allergy/AdvReac Type Severity Reaction Status Date / Time No Known Allergies Allergy Verified 04/02/18 05:43 Home Medications: Home Medications Cyclobenzaprine TAB* [Flexeril 10 MG TAB*] 10 mg PO DAILY PRN 04/02/18 [History Confirmed 04/02/18] lamoTRIgine TAB(*) [Lamictal TAB(*)] 200 mg PO DAILY 04/02/18 [History Confirmed 04/02/18] PMH/Surg Hx/FS Hx/Imm Hx Endocrine/Hematology History: Denies: Hx Diabetes, Hx Thyroid Disease Cardiovascular History: Denies: Hx Hypertension, Hx Pacemaker/ICD Respiratory History: Reports: Hx Sleep Apnea - MILD, UNDIAGNOSISED Denies: Hx Asthma, Hx Chronic Obstructive Pulmonary Disease (COPD) GI History: Reports: Hx Gastroesophageal Reflux Disease, Other GI Disorders Denies: Hx Ulcer History: Denies: Hx Renal Disease Musculoskeletal History: Reports: Hx Back Problems - Chronic back problems Sensory History: Denies: Hx Contacts or Glasses, Hx Hearing Aid Opthamlomology History: Denies: Hx Contacts or Glasses Neurological History: Reports: Hx Seizures - 03/[address] [facility] - FROM ALCOHOL WITHDRAWAL, NONE SINCE Psychiatric History: Reports: Hx Anxiety - NO MEDS, Hx Depression, Hx Bipolar Disorder, Hx Suicide Attempt - 05/20/13 considered suicide, Hx Substance Abuse - ETOH & COCAINE Denies: Hx Eating Disorder, Hx Panic Disorder, Hx of Violent Episodes Against Others - Surgical History Surgery Procedure, Year, and Place: 2010 RIGHT INGUINAL HERNIA REPAIR, [facility]. 1998 [place] [facility]2015 [place]CP WITH GALLSTONE REMOVAL, [facility] Hx Anesthesia Reactions: No Infectious Disease History: No Infectious Disease History: Denies: Hx Hepatitis, Hx Human Immunodeficiency Virus (HIV), History Other Infectious Disease, Traveled Outside the [place] in Last 30 Days - Family History Known Family History: Positive: None, Hypertension, Other - cancer, alcoholism Negative: Renal Disease - Social History Alcohol Use: None Alcohol Amount: 2 months sober Substance Use Type: Reports: None Substance Use Comment - Amount & Last Used: RECOVERING MARIJUANA Hx Tobacco Use: Yes Smoking Status (MU): Former Smoker Type: Cigarettes Amount Used/How Often: Has not smoked in the last 31 days Length of Time of Smoking/Using Tobacco: ON AND OFF FOR ABOUT 20 YEARS Have You Smoked in the Last Year: Yes Physical Exam Vital Signs On Initial Exam: Initial Vitals Temp Pulse Resp BP Pulse Ox 98.2 F 115 16 150/96 94 04/02/18 05:43 04/02/18 05:43 04/02/18 05:43 04/02/18 05:43 04/02/18 05:43 Diagnostics - Vital Signs Vital Signs Temp Pulse Resp BP Pulse Ox 04/02/18 05:43 98.2 F 115 16 150/96 94 - Laboratory Lab Statement: Any lab studies that have been ordered have been reviewed, and results considered in the medical decision making process. Lower Extremity Course/Dx - Course Course Of Treatment: XR (wet read): non-displaced fx of proximal 5th phalange( toe) - no additional fx or dislocation of MT's or tarsals observed. - Diagnoses Provider Diagnoses: Fracture of fifth toe, left, closed Discharge - Discharge Plan Condition: Stable Disposition: HOME Patient Education Materials: Toe Fracture (ED) Forms: *Work Release Referrals: Fabio Poon MD [Medical Doctor] - Additional Instructions: Rest, ice, elevate and wear stiff soled shoe when weight bearing Take ibuprofen 600mg every 6 hours with food as needed for pain/swelling Eat a healthy diet to aid in healing Follow-up with orthopedics if pain persists or worsens. *If in the meantime you develop numbness, weakness or coolness of skin to the area, return to the ED - Billing Disposition and Condition Condition: STABLE Disposition: Home
[2018-04-02 07:27] VITALS: BP 141/94
--- NOTE | 2018-04-02 07:59 | RAD ---
INDICATION: Left foot injury COMPARISON: None TECHNIQUE: AP, lateral, and oblique views were obtained. FINDINGS: There is a nondisplaced, oblique fracture the proximal phalanx of the fifth toe with associated soft tissue swelling. The bony structures, joint spaces, soft tissues otherwise normal. IMPRESSION: FRACTURE THE FIFTH TOE DESCRIBED.
== END 2018-04-02 07:26 | disposition home or self-care (01) ==
LOC: ED 05:41
DX: S92.512A Displaced fracture of proximal phalanx of left lesser toe(s), initial encounter for closed fracture (principal); K21.9 Gastro-esophageal reflux disease without esophagitis; Z87.891 Personal history of nicotine dependence; X58.XXXA Exposure to other specified factors, initial encounter; Y92.9 Unspecified place or not applicable
CPT/HCPCS: 99282

== ENCOUNTER 2020-10-16 05:37 | Inpatient (IN) ==
[2020-10-16] MEDS ORDERED: Buffered Lidocaine 1% SYRIN 1 ml INTRADERM ONE ×2 (06:00→06:16)
[2020-10-16] MEDS ORDERED: Lactated Ringers 1000 ml BAG 1,000 ML IV SCH (06:00)
[2020-10-16] MEDS ORDERED: Famotidine IV 10 MG/ML 2 ml VIAL (20 mg) IV ONE (06:00)
[2020-10-16] MEDS ORDERED: ceFAZolin 2 GM PREMIX 2 GM/50 ML BAG ONE (06:16)
[2020-10-16] MEDS ORDERED: Famotidine IV 10 MG/ML 2 ml VIAL (20 mg) ONE (06:16)
[2020-10-16] MEDS ORDERED: Dexamethasone IV 4 MG/ML VIAL 1 ml VIAL ONE ×2 (07:01→08:38)
[2020-10-16] MEDS ORDERED: Midazolam 2 mg/2 ml VIAL 1 mg/ml 2 ml VIAL (2 mg) ONE (07:01)
[2020-10-16] MEDS ORDERED: Rocuronium 50 mg VIAL 10 mg/ml 5 ml VIAL (50 mg) ONE (07:01)
[2020-10-16] MEDS ORDERED: Propofol 10 MG/ML 20 ML BTL ONE ×2 (07:01→08:53)
[2020-10-16] MEDS ORDERED: fentaNYL 250 mcg/5 ml 50 MCG/ML 5 ml VIAL (250 MCG) ONE (07:01)
[2020-10-16] MEDS ORDERED: Ondansetron 4 mg VIAL 2 MG/ML 2 ml VIAL ONE (07:01)
[2020-10-16] MEDS ORDERED: Lidocaine 2% PF 5 ML VIAL ONE ×2 (07:02→11:46)
[2020-10-16] MEDS ORDERED: Bacitracin INJECTION 50,000 UNITS ONE (07:12)
[2020-10-16] MEDS ORDERED: Artificial Tear OPHTH.OINT 3.5 GM ONE (07:12)
[2020-10-16] MEDS ORDERED: Bupivacaine 0.25% EPI 200,000 30 ML SDV ONE (07:12)
[2020-10-16] MEDS ORDERED: fentaNYL 100 mcg/2 ml 50 MCG/ML VIAL ONE (10:01)
[2020-10-16] MEDS ORDERED: Sugammadex 500 MG/5 ML 5 ml VIAL IV PUSH ONE (10:09)
[2020-10-16] MEDS ORDERED: HYDROmorphone 1 MG/1 ML SYRINGE ONE (10:40)
[2020-10-16] MEDS ORDERED: Acetaminophen IV 1 GM/100ML 100 ML ONE (11:19)
[2020-10-16] MEDS ORDERED: Naloxone 0.4 mg VIAL 0.4 mg/ml 1 ml VIAL IV PRN (11:40)
[2020-10-16] MEDS ORDERED: DiMENhydriNATE IV 50 mg/ml 1 ml VIAL IV PUSH PRN (11:40)
[2020-10-16] MEDS ORDERED: HYDROmorphone 1 MG/1 ML SYRINGE IV PRN (11:40)
[2020-10-16] MEDS ORDERED: HYDROcodone/ACETAMIN 5/325 mg TAB PO PRN (12:04)
[2020-10-16] MEDS ORDERED: Ondansetron 4 mg VIAL 2 MG/ML 2 ml VIAL IV PRN (12:04)
[2020-10-16] MEDS ORDERED: diPHENhydraMINE 25 mg TAB PO PRN (13:59)
[2020-10-16] MEDS ORDERED: Polyethylene Glycol 3350 17 GM PACKET PO PRN (14:00)
[2020-10-16] MEDS: HYDROcodone/ACETAMIN 5/325 mg TAB PO PRN ×2 (14:16→18:30)
[2020-10-17] MEDS: HYDROcodone/ACETAMIN 5/325 mg TAB PO PRN ×5 (01:12→22:01)
[2020-10-17 06:11] LABS: Hematocrit 37 % (42-52); Hemoglobin 12.9 g/dL (14.0-18.0); Mean Corpuscular HGB Conc 35 g/dL (31-36); Mean Corpuscular Hemoglobin 33 pg (27-31); Mean Corpuscular Volume 95 fL (80-94); Mean Platelet Volume 6.3 fL (7.4-10.4); Platelet Count 397 10^3/uL (150-450); Red Cell Distribution Width 14 % (10-15); White Blood Count 16.3 10^3/uL (3.5-10.8)
[2020-10-18] MEDS: HYDROcodone/ACETAMIN 5/325 mg TAB PO PRN ×3 (04:03→17:12)
[2020-10-18] MEDS: Magnesium Hydroxide LIQ 30 ML UDC PO PRN (07:58)
[2020-10-18 08:03] LABS: ABS Basophils 0.1 10^3/ul (0-0.2); ABS Lymphocytes 3.6 10^3/ul (1.0-4.8); ABS Monocytes 1.4 10^3/ul (0-0.8); ABS Neutrophils 7.9 10^3/ul (1.5-7.7); Eosinophil % 0.4 %; Hematocrit 39 % (42-52); Hemoglobin 12.7 g/dL (14.0-18.0); Lymphocyte % 27.7 %; Mean Corpuscular HGB Conc 33 g/dL (31-36); Mean Corpuscular Hemoglobin 32 pg (27-31); Mean Corpuscular Volume 97 fL (80-94); Mean Platelet Volume 6.3 fL (7.4-10.4); Platelet Count 417 10^3/uL (150-450); Red Blood Count 4.01 10^6 /uL (4.18-5.48); Red Cell Distribution Width 14 % (10-15); White Blood Count 13.1 10^3/uL (3.5-10.8)
[2020-10-18 08:23] LABS: BUN/Creatinine Ratio 13.6 (8-20); Calcium 8.9 mg/dL (8.6-10.3); EGFR African American 97.3 (>60); EGFR Non-African American 80.4 (>60); Potassium 4.3 mmol/L (3.5-5.0)
[2020-10-19] MEDS: HYDROcodone/ACETAMIN 5/325 mg TAB PO PRN ×5 (00:40→17:44)
[2020-10-19] MEDS: Magnesium Hydroxide LIQ 30 ML UDC PO PRN (09:36)
[2020-10-19 16:35] VITALS: BP 150/97
== END 2020-10-19 18:15 | disposition home or self-care (01) | DRG 321 ==
LOC: OR 05:37 → SSU 12:45
PROVIDERS: ADMIT Neurological Surgery; ATTEND Neurological Surgery

== ENCOUNTER 2021-04-10 13:12 | Inpatient (IN) ==
[2021-04-10] MEDS ORDERED: Thiamine 100 MG/ML 2 ml VIAL 100 MG, Folic Acid IV 1 MG, Multiple Vitamin IV ADULT 10 M... IV ONE (14:30)
[2021-04-10 15:34] LABS: Urine Appearance Clear; Urine Bilirubin Negative (Negative); Urine Blood Negative (Negative); Urine Color Yellow; Urine Glucose Negative (Negative); Urine Ketones Negative (Negative); Urine Nitrite Negative (Negative); Urine Protein Negative (Negative); Urine Specific Gravity 1.005 (1.002-1.030); Urine Urobilinogen Negative (Negative)
[2021-04-10 15:41] LABS: ABS Basophils 0.1 10^3/ul (0-0.2); ABS Eosinophils 0.1 10^3/ul (0-0.6); ABS Lymphocytes 3.6 10^3/ul (1.0-4.8); ABS Monocytes 1.3 10^3/ul (0-0.8); ABS Neutrophils 6.5 10^3/ul (1.5-7.7); Hematocrit 48 % (42-52); Hemoglobin 16.4 g/dL (14.0-18.0); Lymphocyte % 31.1 %; Mean Corpuscular HGB Conc 34 g/dL (31-36); Mean Corpuscular Hemoglobin 31 pg (27-31); Mean Corpuscular Volume 91 fL (80-94); Mean Platelet Volume 6.4 fL (7.4-10.4); Platelet Count 423 10^3/uL (150-450); Red Blood Count 5.26 10^6 /uL (4.18-5.48); Red Cell Distribution Width 14 % (10-15); White Blood Count 11.6 10^3/uL (3.5-10.8)
[2021-04-10] MEDS ORDERED: LORazepam 2 mg VIAL 1 ml IV PUSH ONE (15:54)
[2021-04-10] MEDS ORDERED: Lorazepam PYXIS KEY PRN (15:54)
[2021-04-10 15:58] LABS: Albumin 4.9 g/dL (3.2-5.2); Albumin/Globulin Ratio 1.4 (1-3); Calcium 9.3 mg/dL (8.6-10.3); EGFR African American 109.4 (>60); EGFR Non-African American 90.5 (>60); Globulin 3.5 g/dL (2-4); Magnesium 2.2 mg/dL (1.9-2.7); Potassium 3.7 mmol/L (3.5-5.0); Total Bilirubin 0.7 mg/dL (0.2-1.0); Total Protein 8.4 g/dL (6.4-8.9)
[2021-04-10] MEDS ORDERED: NS 0.9% 1000 ml BAG 1,000 ML IV SCH (17:15)
[2021-04-10] MEDS: Heparin 5000 UNITS/ML 1 mL VIAL SUBCUT SCH (22:30)
[2021-04-11 04:46] LABS: ABS Basophils 0.1 10^3/ul (0-0.2); ABS Eosinophils 0.2 10^3/ul (0-0.6); ABS Lymphocytes 2.7 10^3/ul (1.0-4.8); ABS Monocytes 1.2 10^3/ul (0-0.8); ABS Neutrophils 6.1 10^3/ul (1.5-7.7); Eosinophil % 2.3 %; Hematocrit 45 % (42-52); Hemoglobin 15.1 g/dL (14.0-18.0); Lymphocyte % 26.3 %; Mean Corpuscular HGB Conc 34 g/dL (31-36); Mean Corpuscular Hemoglobin 31 pg (27-31); Mean Corpuscular Volume 93 fL (80-94); Mean Platelet Volume 6.4 fL (7.4-10.4); Nucleated Red Blood Cells % 0.1; Platelet Count 352 10^3/uL (150-450); Red Blood Count 4.86 10^6 /uL (4.18-5.48); Red Cell Distribution Width 14 % (10-15); White Blood Count 10.4 10^3/uL (3.5-10.8)
[2021-04-11] MEDS: Heparin 5000 UNITS/ML 1 mL VIAL SUBCUT SCH (05:01)
[2021-04-11 05:03] LABS: Calcium 8.6 mg/dL (8.6-10.3); EGFR African American 90.2 (>60); EGFR Non-African American 74.5 (>60); Potassium 4.1 mmol/L (3.5-5.0)
[2021-04-11] MEDS: Multivitamins/Minerals TAB PO SCH (09:20)
[2021-04-11] MEDS ORDERED: Enoxaparin 40 MG/0.4 ML SYR SUBCUT SCH (18:00)
[2021-04-12] MEDS: Multivitamins/Minerals TAB PO SCH (09:54)
[2021-04-12 13:10] VITALS: BP 143/80
== END 2021-04-12 14:50 | disposition home or self-care (01) | DRG 774 ==
LOC: ED 13:12 → MEDTELE 16:48
PROVIDERS: ADMIT Internal Medicine; ATTEND Internal Medicine